=== PATIENT | female | born 1960 | race Caucasian/White ===

== ENCOUNTER 2017-11-02 22:33 | Emergency (ER) | payer MEDICARE ==
[~2017-11-02] VITALS: Ht 160 cm; Wt 61.2 kg
[2017-11-02 22:41] VITALS: BP_SYST 141
--- NOTE | 2017-11-02 22:44 | NUR ---
Robin ulrich in [facility] - 11/02/17 at 2333 by SDEDAFJ Patient to bed 02 to gildardo for evaluation. Side rails up.
--- NOTE | 2017-11-02 23:32 | NUR ---
Patient to ER bed 4 to gown for evaluation. Side rails up. Report given to SCOTT GA.
--- NOTE | 2017-11-02 23:35 | NUR ---
Patient to ER via triage with c/o cough and congestion since 10/05 at 0900. Patient is awake, alert and oriented, vital signs stable, respirations even and unlabored, skin warm and dry to touch. Awaitng evaluation by ER MD, will continue to observe and assess.
--- NOTE | 2017-11-02 23:38 | NUR ---
Dr Covarrubias at bedside to evaluate patient.
[2017-11-02] MEDS ORDERED: IPRATROPIUM/ALBUTEROL SULFATE 3 ML AMPUL.NEB INH ONE (23:45)
[2017-11-02] MEDS ORDERED: KETOROLAC TROMETHAMINE 60 MG/2 ML VIAL IM ONE (23:45)
--- NOTE | 2017-11-03 00:05 | NUR ---
RT at bedside for breathing treatment-patient resting quietly supine, in no acute distress. Respirations even and unlabored, no cough noted while patient is resting quietly in no acute distress.
[2017-11-03 00:27] LABS: EOSINOPHILS # (AUTO) 0.1 K/uL (0.0-0.4); EOSINOPHILS % (AUTO) 2.7 % (0.0-4.0); HEMATOCRIT 36.4 % (36-48); HEMOGLOBIN 12.5 g/dL (12.0-16.0); LYMPHOCYTES # (AUTO) 1.6 K/uL (1.0-5.5); LYMPHOCYTES % (AUTO) 43.1 % (20.5-51.5); MEAN CORPUSCULAR HEMOGLOBIN 31 pg (27-31); MEAN CORPUSCULAR HGB CONC 34 % (32-36); MEAN CORPUSCULAR VOLUME 90 fL (79.0-98.0); MONOCYTES # (AUTO) 0.3 K/uL (0.0-1.0); MONOCYTES % (AUTO) 8.8 % (1.7-9.3); NEUTROPHILS # (AUTO) 1.5 K/uL (1.8-7.7); PLATELET COUNT (AUTO) 57 K/uL (130-430); RED BLOOD CELL COUNT(AUTO) 4.06 MIL/uL (4.2-6.2); RED CELL DISTRIBUTION WIDTH 13.6 % (9.0-15.0); WHITE BLOOD COUNT (AUTO) 3.5 K/uL (4.8-10.8)
[2017-11-03 00:31] LABS: CALCIUM 8.2 mg/dL (8.4-11.0); CREATININE 0.71 mg/dL (0.55-1.30); POTASSIUM 3.8 mmol/L (3.5-5.1)
[2017-11-03 00:45] LABS: TOTAL BILIRUBIN 0.6 mg/dL (0.0-1.0)
--- NOTE | 2017-11-03 01:00 | NUR ---
Patient resting quietly in no acute distress, respirations even and unlabored, skin warm and dry to touch. Awaiting dispo.
[2017-11-03 01:17] LABS: NEUTROPHILS % (AUTO) 44.4 % (40.0-70.0)
[2017-11-03 01:30] VITALS: BP_SYST 135
--- NOTE | 2017-11-03 01:30 | NUR ---
Patient given written and verbal discharge instructions and verbalizes understanding. ER MD discussed with patient the results and treatment provided. Patient in stable condition. ID arm band removed. Rx of Prednisone, Albuterol, Azithromycin given. Patient educated on pain management and to follow up with PMD. Pain Scale 0. Opportunity for questions provided and answered. Medication side effect fact sheet provided. Patient left ER ambulating with slow, steady gait in no acute distress. No adverse reaction noted to medication. No questions related to aftercare.
== END 2017-11-03 01:30 | disposition home or self-care (01) ==
LOC: SED 22:33
DX: J45.909 Unspecified asthma, uncomplicated (principal); R03.0 Elevated blood-pressure reading, without diagnosis of hypertension
CPT/HCPCS: 36415; 71045; 80053; 85025; 85379; 86710; 94640; 96372; 99285; J1885; J7620

== ENCOUNTER 2018-07-03 15:22 | Emergency (ER) | payer BC, MEDICARE ==
[~2018-07-03] VITALS: Ht 160 cm; Wt 59.0 kg
[2018-07-03 15:22] VITALS: BP_SYST 142
[2018-07-03] MEDS ORDERED: KETOROLAC TROMETHAMINE 30 MG VIAL IVP ONE (17:00)
[2018-07-03] MEDS ORDERED: MORPHINE 2 MG/ML INJ. SYRINGE IVP ONE (17:00)
[2018-07-03] MEDS ORDERED: DIPHENHYDRAMINE INJ 50 MG/ML VIAL IVP ONE (17:00)
[2018-07-03 17:49] LABS: BILIRUBIN,URINE 1+ (NEGATIVE); BLOOD, URINE NEGATIVE (NEGATIVE); CLARITY/URINE SL HAZY (CLEAR); COLOR,URINE YELLOW (YELLOW); GLUCOSE,URINE NEGATIVE (NEGATIVE); KETONES,URINE TRACE (NEGATIVE); LEUKOCYTE ESTERASE ,URINE NEGATIVE (NEGATIVE); NITRITE, URINE NEGATIVE (NEGATIVE); PH,URINE 5.5 (5.0-8.0); PROTEIN URINE NEGATIVE (NEGATIVE)
[2018-07-03 17:50] LABS: HEMATOCRIT 39.2 % (36-48); HEMOGLOBIN 13.2 g/dL (12.0-16.0); MEAN CORPUSCULAR HEMOGLOBIN 31 pg (27-31); MEAN CORPUSCULAR HGB CONC 34 % (32-36); MEAN CORPUSCULAR VOLUME 91 fL (79.0-98.0); RED CELL DISTRIBUTION WIDTH 13.8 % (9.0-15.0); WHITE BLOOD COUNT (AUTO) 4.1 K/uL (4.8-10.8)
[2018-07-03 17:51] LABS: BASOPHILS % (AUTO) 0.6 % (0.0-2.0); EOSINOPHILS # (AUTO) 0.1 K/uL (0.0-0.4); EOSINOPHILS % (AUTO) 2.7 % (0.0-4.0); LYMPHOCYTES # (AUTO) 1.5 K/uL (1.0-5.5); LYMPHOCYTES % (AUTO) 37.1 % (20.5-51.5); MONOCYTES # (AUTO) 0.4 K/uL (0.0-1.0); MONOCYTES % (AUTO) 10.5 % (1.7-9.3); NEUTROPHILS % (AUTO) 49.1 % (40.0-70.0)
[2018-07-03 18:01] LABS: INR 1.4 (0.8-1.2); PLATELET COUNT (AUTO) 46 K/uL (130-430); PROTHROMBIN TIME 14.2 SECS (9.5-12.5)
[2018-07-03 18:03] LABS: ANION GAP 7 (5-15); CALCIUM 8.7 mg/dL (8.4-11.0); CHLORIDE 109 mmol/L (98-107); GLUCOSE 121 mg/dL (70-99); POTASSIUM 3.8 mmol/L (3.5-5.1); SODIUM SERUM 140 mmol/L (136-145); UREA NITROGEN, BLOOD 19 mg/dL (8-21)
[2018-07-03 18:08] LABS: GFR AFRICAN AMERICAN 133 mL/min (>90)
[2018-07-03] MEDS ORDERED: BENA40TA2 PO (18:08)
[2018-07-03 18:10] LABS: TOTAL BILIRUBIN 1.1 mg/dL (0.0-1.0)
[2018-07-03 18:11] LABS: ALANINE AMINOTRANSFERASE 151 U/L (12-78); ALBUMIN 2.8 g/dL (3.4-4.8); ALCOHOL, BLOOD < 3 mg/dL (<10); ASPARTATE AMINOTRANSFERASE 188 U/L (10-37); LIPASE 336 U/L (73-393)
[2018-07-03 18:12] LABS: BARBITURATE, URINE NEGATIVE (NEG <=200); BENZODIAZEPINE, URINE NEGATIVE (NEG <=150); CANNABINOID, URINE NEGATIVE (NEG <=50); COCAINE, URINE NEGATIVE (NEG <=150); METHAMPHETAMINES SCREEN,URINE POSITIVE (NEG <=500); OPIATE, URINE NEGATIVE (NEG <=100); PHENCYCLIDINE SCREEN,URINE NEGATIVE (NEG <=25); UR TRICYCLIC ANTIDEPRESSANTS NEGATIVE (NEG <=300); URINE AMPHETAMINE POSITIVE (NEG <=500); URINE METHADONE NEGATIVE (NEG <=200); URINE OXYCODONE SCREEN NEGATIVE (NEG <=100); URINE PROPOXYPHENE SCREEN NEGATIVE (NEG <=300)
[2018-07-03 18:24] LABS: RBC,URINE NONE SEEN /HPF (0-3); WBC,URINE 0-3 /HPF (0-3)
[2018-07-03 18:25] LABS: BACTERIA,URINE FEW /HPF (None Seen); MUCUS,URINE 1+ /LPF (None Seen)
[2018-07-03] MEDS ORDERED: ONDANSETRON HCL 4 MG/2 ML VIAL IVP ONE (18:30)
[2018-07-03] MEDS ORDERED: MAGNESIUM CITRATE 300 ML ORAL SOLUTION PO ONE (18:30)
[2018-07-03 18:50] VITALS: BP_SYST 126
== END 2018-07-03 18:50 | disposition home or self-care (01) ==
LOC: SED 15:22
DX: N20.0 Calculus of kidney (principal); I10 Essential (primary) hypertension; Z86.19 Personal history of other infectious and parasitic diseases
CPT/HCPCS: 36415; 74176; 71045; 80053; 80307; 81000; 81025; 82140; 83605; 83690; 85025; 85610; 87040; 96374; 96375; 99284; G0482; J1885; J2405; J1200

== ENCOUNTER 2018-12-05 12:21 | Emergency (ER) | payer BC ==
[~2018-12-05] VITALS: Ht 167.6 cm; Wt 59.0 kg
[~2018-12-05 12:21] MED LIST: BENA40TA8 PO
[2018-12-05 12:25] VITALS: BP_SYST 141
[2018-12-05] MEDS ORDERED: DIPH-TET-PERTUS Vaccine 0.5 ML VIAL (ADACEL) IM ONE (12:45)
[2018-12-05] MEDS ORDERED: LIDOCAINE 1% 10 MG/ML, 20 ML MDV INJ ONE (12:45)
[2018-12-05] MEDS ORDERED: BACITRACIN 1 GM OINT TP ONE (12:45)
[2018-12-05] MEDS ORDERED: IBUPROFEN 600 MG TABLET PO ONE (13:15)
[2018-12-05] MEDS ORDERED: oxyCODONE HCL 5 MG TABLET PO ONE (13:15)
[2018-12-05 13:37] LABS: EOSINOPHILS # (AUTO) 0.1 K/uL (0.0-0.4); EOSINOPHILS % (AUTO) 1.8 % (0.0-4.0); HEMOGLOBIN 12.7 g/dL (12.0-16.0); LYMPHOCYTES # (AUTO) 1.3 K/uL (1.0-5.5); MONOCYTES # (AUTO) 0.4 K/uL (0.0-1.0); MONOCYTES % (AUTO) 10.1 % (1.7-9.3); NEUTROPHILS # (AUTO) 1.9 K/uL (1.8-7.7); RED CELL DISTRIBUTION WIDTH 15.5 % (9.0-15.0); WHITE BLOOD COUNT (AUTO) 3.6 K/uL (4.8-10.8)
[2018-12-05 13:48] LABS: BASOPHILS % (AUTO) 0.6 % (0.0-2.0); CALCIUM 8.8 mg/dL (8.4-11.0); CREATININE 0.58 mg/dL (0.55-1.30); HEMATOCRIT 38.7 % (36-48); LYMPHOCYTES % (AUTO) 35.9 % (20.5-51.5); MEAN CORPUSCULAR HEMOGLOBIN 29 pg (27-31); MEAN CORPUSCULAR HGB CONC 33 % (32-36); MEAN CORPUSCULAR VOLUME 88 fL (79.0-98.0); NEUTROPHILS % (AUTO) 51.6 % (40.0-70.0); POTASSIUM 3.9 mmol/L (3.5-5.1); RED BLOOD CELL COUNT(AUTO) 4.42 MIL/uL (4.2-6.2)
[2018-12-05 13:51] LABS: INR 1.4 (0.8-1.2); PROTHROMBIN TIME 14.1 SECS (9.5-12.5)
[2018-12-05 13:52] LABS: PLATELET COUNT (AUTO) 46 K/uL (130-430)
[2018-12-05 13:53] LABS: TOTAL BILIRUBIN 1.6 mg/dL (0.0-1.0)
[2018-12-05] MEDS ORDERED: LIDOCAINE/EPI 2% 1:100000 20 ML VIAL INJ ONE (14:15)
[2018-12-05 14:20] VITALS: BP_SYST 141
== END 2018-12-05 14:20 | disposition home or self-care (01) ==
LOC: SED 12:21
DX: S21.131A Puncture wound without foreign body of right front wall of thorax without penetration into thoracic cavity, initial encounter (principal); K74.60 Unspecified cirrhosis of liver; D69.6 Thrombocytopenia, unspecified; I10 Essential (primary) hypertension; Z86.19 Personal history of other infectious and parasitic diseases; W01.0XXA Fall on same level from slipping, tripping and stumbling without subsequent striking against object, initial encounter; Y93.89 Activity, other specified; Y92.89 Other specified places as the place of occurrence of the external cause; Y99.8 Other external cause status
CPT/HCPCS: 36415; 71045; 80053; 85025; 85610-TC; 85730-TC; 90715; 99284

== ENCOUNTER 2019-06-14 16:39 | Inpatient (IN) | payer BC ==
[~2019-06-14] VITALS: Ht 160 cm; Wt 61.2 kg
[~2019-06-14 16:39] MED LIST changes: +METR500T PO
[2019-06-14 17:04] VITALS: BP_SYST 159
[2019-06-14] MEDS ORDERED: NACL 0.9% 1,000 ML IV ONE (17:34)
[2019-06-14] MEDS ORDERED: MORPHINE 4 MG/ML INJ. SYRINGE IVP ONE (17:45)
[2019-06-14] MEDS ORDERED: PANTOPRAZOLE SODIUM 40 MG/VIAL (PROTONIX) IVP ONE (17:45)
[2019-06-14] MEDS ORDERED: ONDANSETRON HCL 4 MG/2 ML VIAL IVP ONE (17:45)
[2019-06-14 17:59] LABS: BASOPHILS % (AUTO) 0.6 % (0.0-2.0); EOSINOPHILS # (AUTO) 0.1 K/uL (0.0-0.4); EOSINOPHILS % (AUTO) 2.5 % (0.0-4.0); HEMATOCRIT 38.3 % (36-48); LYMPHOCYTES # (AUTO) 1.3 K/uL (1.0-5.5); LYMPHOCYTES % (AUTO) 36.8 % (20.5-51.5); MEAN CORPUSCULAR HEMOGLOBIN 30 pg (27-31); MEAN CORPUSCULAR HGB CONC 34 % (32-36); MEAN CORPUSCULAR VOLUME 89 fL (79.0-98.0); MONOCYTES # (AUTO) 0.3 K/uL (0.0-1.0); MONOCYTES % (AUTO) 7.8 % (1.7-9.3); NEUTROPHILS # (AUTO) 1.8 K/uL (1.8-7.7); NEUTROPHILS % (AUTO) 52.3 % (40.0-70.0); RED CELL DISTRIBUTION WIDTH 14.2 % (9.0-15.0); WHITE BLOOD COUNT (AUTO) 3.5 K/uL (4.8-10.8)
[2019-06-14 18:15] LABS: ANION GAP 5 (5-15); CALCIUM 7.9 mg/dL (8.4-11.0); CHLORIDE 104 mmol/L (98-107); CREATININE 0.56 mg/dL (0.55-1.30); GLUCOSE 92 mg/dL (70-99); POTASSIUM 3.8 mmol/L (3.5-5.1); SODIUM SERUM 136 mmol/L (136-145); UREA NITROGEN, BLOOD 13 mg/dL (8-21)
[2019-06-14 18:17] LABS: PLATELET COUNT (AUTO) 37 K/uL (130-430)
[2019-06-14 18:19] LABS: GFR AFRICAN AMERICAN 144 mL/min (>90)
[2019-06-14 18:21] LABS: ALANINE AMINOTRANSFERASE 52 U/L (12-78); ALBUMIN 3.5 g/dL (3.4-4.8); AMYLASE 77 U/L (0-100); ASPARTATE AMINOTRANSFERASE 76 U/L (10-37); LIPASE 274 U/L (73-393); TOTAL BILIRUBIN 1.5 mg/dL (0.0-1.0)
[2019-06-14 18:25] LABS: ALCOHOL, BLOOD < 3 mg/dL (<10)
[2019-06-14 18:36] LABS: BILIRUBIN,URINE NEGATIVE (NEGATIVE); BLOOD, URINE NEGATIVE (NEGATIVE); CLARITY/URINE CLEAR (CLEAR); COLOR,URINE YELLOW (YELLOW); GLUCOSE,URINE NEGATIVE (NEGATIVE); KETONES,URINE NEGATIVE (NEGATIVE); LEUKOCYTE ESTERASE ,URINE NEGATIVE (NEGATIVE); NITRITE, URINE NEGATIVE (NEGATIVE); PROTEIN URINE NEGATIVE (NEGATIVE)
--- NOTE | 2019-06-14 18:39 | NUR ---
PATIENT PRESENTS TO THE ER WITH HX OF SEVERE ABDOMINAL PAIN AND DISTENTION WITH DIARRHEA/CONSTIPATION OVER THE PAST THREE DAYS; ADDITIONALLY, PATIENT STATES HEMATEMESIS, DIZZINESS AND WEAKNESS; NO TRAUMA, NO OTHER REMARKABLE S/S
[2019-06-14 18:40] LABS: INR 1.4 (0.8-1.2); PROTHROMBIN TIME 13.8 SECS (9.5-12.5)
--- NOTE | 2019-06-14 18:40 | NUR ---
PATIENT TO ER #1 AT [id number]
--- NOTE | 2019-06-14 18:41 | NUR ---
ERMD EVALUATION AT 1740
--- NOTE | 2019-06-14 18:46 | NUR ---
PATIENT IS ON FILM SPLICER, SAO2 AND NASAL OXYGEN AT 2LM; IV PLACED WITHOUT INCIDENT #20 LAC
[2019-06-14 18:58] LABS: BARBITURATE, URINE NEGATIVE (NEG <=200); METHAMPHETAMINES SCREEN,URINE POSITIVE (NEG <=500); URINE AMPHETAMINE NEGATIVE (NEG <=500)
[2019-06-14 18:59] LABS: BENZODIAZEPINE, URINE NEGATIVE (NEG <=150); CANNABINOID, URINE NEGATIVE (NEG <=50); COCAINE, URINE NEGATIVE (NEG <=150); OPIATE, URINE NEGATIVE (NEG <=100); PHENCYCLIDINE SCREEN,URINE NEGATIVE (NEG <=25); UR TRICYCLIC ANTIDEPRESSANTS NEGATIVE (NEG <=300); URINE METHADONE NEGATIVE (NEG <=200); URINE OXYCODONE SCREEN NEGATIVE (NEG <=100); URINE PROPOXYPHENE SCREEN NEGATIVE (NEG <=300)
--- NOTE | 2019-06-14 19:19 | NUR ---
Patient will be admitted to care of DR. AGUILAR. Admitted to TELE unit. PT IS AN ER HOLD TILL [facility] BED OPENS UP. Belongings list completed. Complete and up to date summary report printed. SBAR report to be given at bedside with opportunity for questions.
[2019-06-14] MEDS ORDERED: PANTOPRAZOLE SODIUM 80 MG in NS 100 ML IV ONE (19:30)
[2019-06-14] MEDS: NACL 0.9% 1,000 ML IV SCH (19:30)
[2019-06-14] MEDS ORDERED: PANTOPRAZOLE SODIUM 40 MG/VIAL (PROTONIX) ONE (19:40)
--- NOTE | 2019-06-14 19:40 | NUR ---
CONSULT CALLED FOR DR. ROMANO REGARDING GI BLEED. SPOKE WITH KRISTY AT ANSWERING SERVICE.
--- NOTE | 2019-06-14 20:08 | NUR ---
Pt transferred from ER bed to hospital bed for comfort. Will cont. to monitor pt.
[2019-06-14] MEDS ORDERED: ONDANSETRON HCL 4 MG/2 ML VIAL IVP PRN (21:00)
[2019-06-14] MEDS ORDERED: LORazepam 2 MG/ML VIAL IVP PRN (21:00)
[2019-06-14] MEDS ORDERED: DIPHENHYDRAMINE INJ 50 MG/ML VIAL IVP PRN (21:00)
--- NOTE | 2019-06-14 21:00 | NUR ---
Pt states that she has been itchy on her R arm, back and bilateral legs. Reports that she randomly gets hives and treats it with cortizone cream. Called Dr. Champagne and updated about pts condition. Per Dr. Champagne benadryl 50 IV q6 PRN for allergy, ativan 1mg IV Q4 for agitation and zofran 4mg IV q4 PRN n/v
--- NOTE | 2019-06-14 21:17 | NUR ---
Pt assited on to bedside commode. Tolerated well. Will cont. to monitor.
[2019-06-14] MEDS ORDERED: cloNIDine HCL 0.1 MG TABLET PO PRN (22:15)
[2019-06-14] MEDS ORDERED: MAG-AL HYDROX/SIMETH 30 ML UDC PO PRN (22:15)
--- NOTE | 2019-06-14 22:23 | NUR ---
Dr. Champagne at bedside.
[2019-06-14 22:44] LABS: BASOPHILS % (AUTO) 0.8 % (0.0-2.0); EOSINOPHILS # (AUTO) 0.1 K/uL (0.0-0.4); EOSINOPHILS % (AUTO) 3.1 % (0.0-4.0); HEMOGLOBIN 11.9 g/dL (12.0-16.0); LYMPHOCYTES # (AUTO) 1.4 K/uL (1.0-5.5); LYMPHOCYTES % (AUTO) 44.5 % (20.5-51.5); MEAN CORPUSCULAR HEMOGLOBIN 30 pg (27-31); MEAN CORPUSCULAR HGB CONC 34 % (32-36); MEAN CORPUSCULAR VOLUME 90 fL (79.0-98.0); MONOCYTES # (AUTO) 0.2 K/uL (0.0-1.0); MONOCYTES % (AUTO) 7.1 % (1.7-9.3); NEUTROPHILS # (AUTO) 1.4 K/uL (1.8-7.7); NEUTROPHILS % (AUTO) 44.5 % (40.0-70.0); RED BLOOD CELL COUNT(AUTO) 3.91 MIL/uL (4.2-6.2); RED CELL DISTRIBUTION WIDTH 14.7 % (9.0-15.0); WHITE BLOOD COUNT (AUTO) 3.2 K/uL (4.8-10.8)
[2019-06-14 22:50] LABS: PLATELET COUNT (AUTO) 33 K/uL (130-430)
[2019-06-14] MEDS ORDERED: MAG-AL HYDROX/SIMETH 30 ML UDC PO ONE (23:00)
[2019-06-14] MEDS ORDERED: LISINOPRIL 20 MG TABLET PO SCH (23:00)
[2019-06-14] MEDS ORDERED: THIAMINE HCL 100 MG in NS 50 ML IV ONE (23:00)
--- NOTE | 2019-06-14 23:15 | NUR ---
Called pharmacy to as if it is ok to give vitamin K PO. Marino states, "Vitamin K is currently back ordered, it's okay to give PO with some juice."
[2019-06-14] MEDS: PHYTONADIONE 10 MG/ML AMP PO SCH (23:30)
[2019-06-14] MEDS ORDERED: THIAMINE HCL 100 MG/ML VIAL ONE ×2 (23:31)
--- NOTE | 2019-06-14 23:35 | NUR ---
Pts BP is 128/90, holding BP medication.
--- NOTE | 2019-06-15 01:00 | NUR ---
Pt resting comfortably in bed, no signs of acute distress. Will cont. to monitor.
--- NOTE | 2019-06-15 01:30 | NUR ---
Pts BP is 121/67, holding BP medication.
--- NOTE | 2019-06-15 02:00 | NUR ---
Pt resting comfortably in bed, no signs of acute distress. Will cont. to monitor.
[2019-06-15] MEDS ORDERED: AMLO5TAB4 PO (03:13)
[2019-06-15] MEDS ORDERED: ALPR0.5T PO (03:18)
--- NOTE | 2019-06-15 03:18 | NUR ---
Medication reconciliation completed with information provided by patient. Any prior medication reconciliation on file was reviewed and corrected.
--- NOTE | 2019-06-15 03:30 | NUR ---
Pts BP is 120/62, holding BP medication.
[2019-06-15] MEDS ORDERED: PHYTONADIONE 10 MG/ML AMP ONE (05:50)
[2019-06-15] MEDS: NACL 0.9% 1,000 ML IV SCH ×3 (05:55→21:27)
[2019-06-15] MEDS: PHYTONADIONE 10 MG/ML AMP PO SCH (06:00)
--- NOTE | 2019-06-15 06:00 | NUR ---
Pt ambulated with assistance to bathroom, no signs of acute distress. Will cont. to monitor.
--- NOTE | 2019-06-15 06:20 | NUR ---
Pt coughed up red-tinged sputum.
--- NOTE | 2019-06-15 06:26 | NUR ---
Provided pt with jello and juice. No signs of acute distress. Will cont .to monitor.
--- NOTE | 2019-06-15 06:30 | NUR ---
Pt stated IV on LAC was hurting. Started new IV on R forearm.
--- NOTE | 2019-06-15 06:36 | NUR ---
Amy Ruiz's number [phone]
--- NOTE | 2019-06-15 07:15 | NUR ---
REPORT FROM BISHOP CHAVEZ
[2019-06-15 08:40] LABS: BASOPHILS % (AUTO) 0.7 % (0.0-2.0); EOSINOPHILS # (AUTO) 0.1 K/uL (0.0-0.4); EOSINOPHILS % (AUTO) 3.5 % (0.0-4.0); HEMATOCRIT 33.6 % (36-48); HEMOGLOBIN 11.2 g/dL (12.0-16.0); LYMPHOCYTES # (AUTO) 1.4 K/uL (1.0-5.5); LYMPHOCYTES % (AUTO) 51.2 % (20.5-51.5); MEAN CORPUSCULAR HEMOGLOBIN 30 pg (27-31); MEAN CORPUSCULAR HGB CONC 34 % (32-36); MEAN CORPUSCULAR VOLUME 90 fL (79.0-98.0); MONOCYTES # (AUTO) 0.2 K/uL (0.0-1.0); MONOCYTES % (AUTO) 9.1 % (1.7-9.3); NEUTROPHILS % (AUTO) 35.5 % (40.0-70.0); RED BLOOD CELL COUNT(AUTO) 3.72 MIL/uL (4.2-6.2); RED CELL DISTRIBUTION WIDTH 14.4 % (9.0-15.0); WHITE BLOOD COUNT (AUTO) 2.7 K/uL (4.8-10.8)
[2019-06-15 08:58] LABS: NEUTROPHILS # (AUTO) 0.9 K/uL (1.8-7.7)
[2019-06-15 08:59] LABS: INR 1.5 (0.8-1.2); PLATELET COUNT (AUTO) 33 K/uL (130-430)
[2019-06-15 09:07] LABS: ALBUMIN 2.6 g/dL (3.4-4.8); CALCIUM 7.5 mg/dL (8.4-11.0); CREATININE 0.66 mg/dL (0.55-1.30); POTASSIUM 3.6 mmol/L (3.5-5.1); TOTAL BILIRUBIN 1.5 mg/dL (0.0-1.0)
--- NOTE | 2019-06-15 09:35 | NUR ---
PT TO CT
--- NOTE | 2019-06-15 09:50 | NUR ---
Patient will be admitted to care of DR AGUILAR. Admitted to TELE unit. Will go to room 123. Belongings list completed. Complete and up to date summary report printed. SBAR report to be given at bedside with opportunity for questions. Transfer to TELE via ACLS protocol. Licensed nurse present. IV present no signs or symptoms of infiltration.
--- NOTE | 2019-06-15 10:00 | NUR ---
ADMISSION NOTE Received patient from ER via greyson, received report from JOSI CHAVEZ. Patient admitted with diagnosis of GI BLEED. Patient oriented to hospital routine, call light, toileting and safety-patient verbalized understanding.
[2019-06-15 10:17] VITALS: BP_SYST 139
[2019-06-15] MEDS: LISINOPRIL 20 MG TABLET PO SCH (10:19)
[2019-06-15] MEDS: THIAMINE HCL 100 MG TABLET PO SCH (10:19)
[2019-06-15] MEDS: FAMOTIDINE PF 20 MG/2 ML VIAL IVP SCH ×2 (10:19→21:17)
[2019-06-15] MEDS: FOLIC ACID 1 MG TABLET PO SCH (10:20)
--- NOTE | 2019-06-15 10:24 | NUR ---
GI consult called: for Dr. Price (Dr. Muriel Javier regional sales representative), regarding GI bleed, ordered by Dr. Champagne, spoke with Mariola.
[2019-06-15] MEDS: ACETAMINOPHEN 325 MG TABLET PO PRN ×2 (10:28→21:18)
--- NOTE | 2019-06-15 10:30 | NUR ---
opening note patient is resting in bed, alert and oriented, educated management consultant light system and plan of care, patient verbalized understanding, educated on medication uses and side effects, patient verbalized understanding, no signs of distress at this time, IV site dressing in tact, IVF running and patient tolerating well, no other needs addressed at this time, patient walks steady to the bathroom, fall/safety precautions in place.
--- NOTE | 2019-06-15 12:13 | NUR ---
rounds patient is resting in bed, eyes closed breathing easy and nonlabored, no signs of distress at this time, no needs addressed at this time, fall/safety precautions in place.
[2019-06-15 12:36] VITALS: BP_SYST 108
[2019-06-15] MEDS: MAG-AL HYDROX/SIMETH 30 ML UDC PO SCH ×3 (13:07→21:17)
--- NOTE | 2019-06-15 14:30 | NUR ---
Dr Javier came to see patient for consults, discussed plan of care, possible EGD for tomorrow.
--- NOTE | 2019-06-15 16:53 | NUR ---
scheduled medication patient is resting in bed, educated on medication use and side effects, patient verbalized understanding, no signs of distress at this time, no needs addressed at this time, fall/safety precautions in place, IVF running and patient tolerating well.
[2019-06-15 17:23] VITALS: BP_SYST 115
--- NOTE | 2019-06-15 18:40 | NUR ---
closing note patient is resting in bed, family at the bedside, no signs of distress at this time, IV site dressing in tact, IVF running and patient tolerating well, no other needs addressed at this time, patient walks steady to the bathroom, bed in lowest position, two side rails up, call light within reach, bed alarm on, call/safety precautions in place, will endorse report to noc shift nurse to continue with care, patient will have EGD tomorrow AM, consent was signed, patient to be NPO after midnight, patient is aware of this.
--- NOTE | 2019-06-15 19:15 | NUR ---
initial notes: pt is alert, awake, oriented x 3. no pain. no distress. stable. pt has ongoing ivf infusing well. pt has pt is ambulatory with steady gait. daughter at bed side . on clear liquid. explained plan of care. pt verbalized understanding. call light in reach, side rails up. low bed position. will monitor.
[2019-06-15 20:48] VITALS: BP_SYST 120
[2019-06-15] MEDS: TEMAZEPAM 15 MG CAPSULE PO SCH (21:00)
--- NOTE | 2019-06-15 22:00 | NUR ---
resting on her side, comfortable. ivf infusing well. safety on. call light in reach. will monitor.
--- NOTE | 2019-06-15 23:59 | NUR ---
sleeping, no pain. stable. pt refused restoril earlier. safety on. call light in reach. will monitor.
[2019-06-16 00:37] VITALS: BP_SYST 128
--- NOTE | 2019-06-16 02:07 | NUR ---
sleeping on her side comfortable, no pain, no vomiting, no sob. ivf infusing well. npo for egd. cony monitor.
--- NOTE | 2019-06-16 04:00 | NUR ---
pt wakes up, assisted to bathroom, back to bed,s teady gait. no pain. no sob. needs attended. will monitor.
--- NOTE | 2019-06-16 06:00 | NUR ---
sleeping, comfortable. no distress. ivf infusing well. stable. safety on. will monitor.
--- NOTE | 2019-06-16 07:20 | NUR ---
closing: pt is sleeping, wakes up, during report, ivf infusing well. npo for egd, needs attended the whole shift. bedside report given to am rn.
--- NOTE | 2019-06-16 07:25 | NUR ---
OPENING NOTE PT AWAKE, ALERT AND ORIENTED. NO ACUTE DISTRESS NOTED. IV INTACT AND PATENT, NO SIGNS OF INFILTRATION. FLUIDS INFUSING ORDERED PER MD. TOLERATING WELL. BED IN LOWEST AND LOCKED POSITION. ALL NEEDS MET. FALL AND ASPIRATION PRECAUTIONS IN PLACE. CONTINUE TO MONITOR.
[2019-06-16 08:00] VITALS: BP_SYST 113
--- NOTE | 2019-06-16 08:30 | NUR ---
ENDORSED CARE TO SCOTT SIMONS.
[2019-06-16] MEDS ORDERED: MIDAZOLAM HCL 5 MG/5 ML VIAL ONE (08:51)
[2019-06-16] MEDS ORDERED: SIMETHICONE 40 MG/0.6 ML ML ONE (08:52)
[2019-06-16] MEDS ORDERED: DIPHENHYDRAMINE INJ 50 MG/ML VIAL ONE (08:52)
[2019-06-16] MEDS: MEPERIDINE HCL/PF 100 MG/ML AMP ONE ×2 (08:55→08:58)
[2019-06-16] MEDS: MIDAZOLAM HCL 5 MG/5 ML VIAL ONE ×2 (08:55→08:58)
[2019-06-16] MEDS: MAG-AL HYDROX/SIMETH 30 ML UDC PO SCH ×5 (09:00→23:12)
[2019-06-16 09:59] VITALS: BP_SYST 134
--- NOTE | 2019-06-16 10:00 | NUR ---
S/P EGD: Received from GI s/p EGD. Patient is awake but drowsy. Kept comfortable in bed. Safety precautions in place. Called dietary for soft diet tray.
[2019-06-16] MEDS: NACL 0.9% 1,000 ML IV SCH ×2 (10:08→21:30)
[2019-06-16] MEDS: THIAMINE HCL 100 MG TABLET PO SCH (10:08)
[2019-06-16] MEDS: FAMOTIDINE PF 20 MG/2 ML VIAL IVP SCH ×2 (10:08→23:05)
[2019-06-16] MEDS: FOLIC ACID 1 MG TABLET PO SCH (10:08)
[2019-06-16] MEDS: LISINOPRIL 20 MG TABLET PO SCH (10:09)
--- NOTE | 2019-06-16 12:51 | NUR ---
Dietitian Recommendations *Recommend GI Soft 2gm Na diet. *Encourage pt to increase PO intake. *May add ONS if PO intake does not improve by next RD visit. Please see Nutritional Assessment for details. SHELTER, RD
--- NOTE | 2019-06-16 13:28 | NUR ---
CONSULT HEMATOLOGY LOW PLATELETS DR CARTER [phone] DR RUBIN CASING MACHINE OPERATOR S/W DEVIN PAMELLA
--- NOTE | 2019-06-16 13:30 | NUR ---
Rounds: Patient sitting in bed. Denies chest pain. Family at bedside. Addendum: 06/16/19 at 1517 by Savannah Dominguez RN above documentation is intended for another patient.
[2019-06-16 15:00] VITALS: BP_SYST 131
--- NOTE | 2019-06-16 15:12 | NUR ---
Rounds: Ambulated to the bathroom with steady gait. Denies pain at this time.
[2019-06-16 15:59] LABS: RETICULOCYTE COUNT 1.4 % (0.5-1.5)
[2019-06-16 16:30] LABS: LACTATE DEHYDROGENASE 192 U/L (81-234); THYROID STIMULATING HORMONE 2.27 uIu/mL (0.36-3.74)
[2019-06-16 16:43] LABS: C-REACTIVE PROTEIN QUANT < 0.2 mg/dL (0-0.5)
[2019-06-16 16:56] LABS: TOTAL IRON BIND. CAPACITY 389 ug/dL (250-450)
--- NOTE | 2019-06-16 18:19 | NUR ---
End of shift: Needs attended. No change in assessment.
--- NOTE | 2019-06-16 21:00 | NUR ---
Right AC peripheral IV removed due to leaking around site. Pt complained of discomfort at site and stated "something just doesn't feel right". New 22 gauge peripheral IV placed in left forearm. Flushes well. Pt has no complaints. Tolerated procedure well.
[2019-06-16] MEDS: TEMAZEPAM 15 MG CAPSULE PO SCH (23:16)
[2019-06-17 06:39] LABS: ALBUMIN 2.6 g/dL (3.4-4.8); BASOPHILS % (AUTO) 0.7 % (0.0-2.0); CALCIUM 7.9 mg/dL (8.4-11.0); CREATININE 0.52 mg/dL (0.55-1.30); EOSINOPHILS # (AUTO) 0.1 K/uL (0.0-0.4); EOSINOPHILS % (AUTO) 5.3 % (0.0-4.0); HEMOGLOBIN 11.1 g/dL (12.0-16.0); LYMPHOCYTES % (AUTO) 41.5 % (20.5-51.5); MEAN CORPUSCULAR HEMOGLOBIN 30 pg (27-31); MEAN CORPUSCULAR HGB CONC 34 % (32-36); MEAN CORPUSCULAR VOLUME 90 fL (79.0-98.0); MONOCYTES # (AUTO) 0.3 K/uL (0.0-1.0); MONOCYTES % (AUTO) 10.3 % (1.7-9.3); NEUTROPHILS # (AUTO) 1.1 K/uL (1.8-7.7); NEUTROPHILS % (AUTO) 42.2 % (40.0-70.0); POTASSIUM 3.6 mmol/L (3.5-5.1); RED BLOOD CELL COUNT(AUTO) 3.65 MIL/uL (4.2-6.2); TOTAL BILIRUBIN 1.1 mg/dL (0.0-1.0); WHITE BLOOD COUNT (AUTO) 2.5 K/uL (4.8-10.8)
[2019-06-17 07:28] LABS: PLATELET COUNT (AUTO) 33 K/uL (130-430)
[2019-06-17 07:40] VITALS: BP_SYST 119
--- NOTE | 2019-06-17 07:53 | NUR ---
AM rounds: Patient is oriented x4. Denies any pain, nor diarrhea. Normal saline at 100 cc/hr infusing on the left wrist gauge 20. Call light within reach.
[2019-06-17 08:06] LABS: FOLATE (FOLIC ACID) 16.1 ng/mL (>3.0)
[2019-06-17 08:22] VITALS: BP_SYST 134
[2019-06-17] MEDS: MAG-AL HYDROX/SIMETH 30 ML UDC PO SCH ×2 (09:00→13:00)
[2019-06-17] MEDS: THIAMINE HCL 100 MG TABLET PO SCH (09:25)
[2019-06-17] MEDS: FAMOTIDINE PF 20 MG/2 ML VIAL IVP SCH (09:26)
[2019-06-17] MEDS: FOLIC ACID 1 MG TABLET PO SCH (09:26)
[2019-06-17] MEDS: LISINOPRIL 20 MG TABLET PO SCH (09:27)
[2019-06-17] MEDS: NACL 0.9% 1,000 ML IV SCH (09:36)
[2019-06-17 12:08] VITALS: BP_SYST 137
--- NOTE | 2019-06-17 12:30 | NUR ---
Rounds: denies any pain, no signs of bleeding.
[2019-06-17] MEDS ORDERED: FLU VACC QS2019-20 36MOS UP/PF 60 MCG/0.5 ML SYRINGE I.M. PRN (12:45)
[2019-06-17] MEDS ORDERED: Thiamine Hcl PO (12:54)
[2019-06-17] MEDS ORDERED: FOLI-43 PO (12:54)
[2019-06-17] MEDS ORDERED: ANT30 PO (12:54)
[2019-06-17] MEDS ORDERED: FAMO-132 PO (12:54)
[2019-06-17 13:10] VITALS: BP_SYST 97
--- NOTE | 2019-06-17 14:30 | NUR ---
HEMATOLOGY clearance for DC: Okayed by Dr. Dunham to be discharged home. Needs to follow up with hematology outpatient. Patient and Dr. Ihsan alegria.
[2019-06-17 16:04] VITALS: BP_SYST 135
--- NOTE | 2019-06-17 19:00 | NUR ---
D/C Patient Patient given medication reconciliation form and D/C instructions. Exit Care provided. Patient verbalized understanding. MD discussed with patient the results and treatment provided. Ambulatory with steady gait for discharge to home. Patient in stable condition, ID band removed. IV catheter removed, intact and dressing applied, no active bleeding. Rx of Pepcid, Folic Acid, Thiamine, Mylanta given. Patient educated on pain management, follow up with a best second jobs. Exit care on gastritis, Esophageal varices give. All belongings sent with patient.
== END 2019-06-17 18:57 | disposition home or self-care (01) | DRG 241 ==
LOC: SED 16:39 → STU 21:09 → SMU 06-15 09:48 → STU 06-15 10:16 → SMU 06-16 16:57
PROVIDERS: ADMIT Internal Medicine; ATTEND Internal Medicine
PROC: 0DB78ZX Excision of Stomach, Pylorus, Via Natural or Artificial Opening Endoscopic, Diagnostic (ICD-10-PCS; principal; 2019-06-16 09:00)
DX: K29.21 Alcoholic gastritis with bleeding (principal); D61.818 Other pancytopenia; D69.59 Other secondary thrombocytopenia; K56.7 Ileus, unspecified; R16.2 Hepatomegaly with splenomegaly, not elsewhere classified; D62 Acute posthemorrhagic anemia; K25.0 Acute gastric ulcer with hemorrhage; K74.60 Unspecified cirrhosis of liver; R59.0 Localized enlarged lymph nodes; B19.20 Unspecified viral hepatitis C without hepatic coma; I86.4 Gastric varices; F17.210 Nicotine dependence, cigarettes, uncomplicated; F10.20 Alcohol dependence, uncomplicated; I10 Essential (primary) hypertension; F15.10 Other stimulant abuse, uncomplicated; T47.1X5A Adverse effect of other antacids and anti-gastric-secretion drugs, initial encounter; Y92.238 Other place in hospital as the place of occurrence of the external cause; L27.1 Localized skin eruption due to drugs and medicaments taken internally; Z91.018 Allergy to other foods; Z79.899 Other long term (current) drug therapy
CPT/HCPCS: 36415; 43239; 70450-TC; 71045; 80053; 80307; 81003; 82140-TC; 82150-TC; 82550-TC; 82607; 82746; 83010; 83540-TC; 83550-TC; 83605; 83615-TC; 83690-TC; 83735-TC; 83880; 84443-TC; 84484; 85025; 85044-TC; 85384-TC; 85610-TC; 85651-TC; 85730-TC; 86140; 86886; 86900; 86901; 87040-TC; 87081; 88305; 88312; 88313; 96365; 96375; 96376; 99285; C9113; G0378; G0481; G0482; J1200; J2175; J2250; J2270; J2405; J3411; J3430; J3490; J7030

== ENCOUNTER 2019-09-07 13:18 | Inpatient (IN) | payer BC ==
[~2019-09-07] VITALS: Ht 160 cm; Wt 64.0 kg
[~2019-09-07 13:18] MED LIST changes: +ALPR0.5T PO; +AMLO5TAB4 PO; +ANT30 PO; +FAMO-132 PO; +FOLI-43 PO; -METR500T PO; +Thiamine Hcl PO
[2019-09-07 13:19] VITALS: BP_SYST 146
[2019-09-07] MEDS ORDERED: NACL 0.9% 1,000 ML IV ONE (13:22)
[2019-09-07] MEDS ORDERED: LORazepam 2 MG/ML VIAL IVP ONE (13:30)
[2019-09-07 13:47] LABS: BILIRUBIN,URINE 1+ (NEGATIVE); BLOOD, URINE NEGATIVE (NEGATIVE); CLARITY/URINE CLEAR (CLEAR); COLOR,URINE YELLOW (YELLOW); GLUCOSE,URINE TRACE (NEGATIVE); KETONES,URINE NEGATIVE (NEGATIVE); LEUKOCYTE ESTERASE ,URINE NEGATIVE (NEGATIVE); NITRITE, URINE NEGATIVE (NEGATIVE); PH,URINE 5.5 (5.0-8.0); PROTEIN URINE NEGATIVE (NEGATIVE)
[2019-09-07 14:03] LABS: EOSINOPHILS # (AUTO) 0.1 K/uL (0.0-0.4); LYMPHOCYTES # (AUTO) 1.2 K/uL (1.0-5.5); MONOCYTES # (AUTO) 0.4 K/uL (0.0-1.0)
[2019-09-07 14:10] LABS: BARBITURATE, URINE NEGATIVE (NEG <=200); BENZODIAZEPINE, URINE NEGATIVE (NEG <=150); CANNABINOID, URINE NEGATIVE (NEG <=50); COCAINE, URINE NEGATIVE (NEG <=150); METHAMPHETAMINES SCREEN,URINE POSITIVE (NEG <=500); OPIATE, URINE NEGATIVE (NEG <=100); PHENCYCLIDINE SCREEN,URINE NEGATIVE (NEG <=25); UR TRICYCLIC ANTIDEPRESSANTS NEGATIVE (NEG <=300); URINE AMPHETAMINE NEGATIVE (NEG <=500); URINE METHADONE NEGATIVE (NEG <=200); URINE OXYCODONE SCREEN NEGATIVE (NEG <=100); URINE PROPOXYPHENE SCREEN NEGATIVE (NEG <=300)
[2019-09-07 14:11] LABS: CALCIUM 8.6 mg/dL (8.4-11.0); CREATININE 0.65 mg/dL (0.55-1.30); POTASSIUM 3.9 mmol/L (3.5-5.1)
[2019-09-07 14:15] LABS: INR 1.4 (0.8-1.2); PROTHROMBIN TIME 13.7 SECS (9.5-12.5)
[2019-09-07 14:17] LABS: ALBUMIN 3.3 g/dL (3.4-4.8); TOTAL BILIRUBIN 1.8 mg/dL (0.0-1.0)
[2019-09-07 14:18] LABS: BASOPHILS % (AUTO) 0.8 % (0.0-2.0); EOSINOPHILS % (AUTO) 1.7 % (0.0-4.0); HEMATOCRIT 42.8 % (36-48); HEMOGLOBIN 14.3 g/dL (12.0-16.0); LYMPHOCYTES % (AUTO) 30.4 % (20.5-51.5); MEAN CORPUSCULAR HEMOGLOBIN 30 pg (27-31); MEAN CORPUSCULAR HGB CONC 33 % (32-36); MEAN CORPUSCULAR VOLUME 90 fL (79.0-98.0); MONOCYTES % (AUTO) 8.8 % (1.7-9.3); NEUTROPHILS # (AUTO) 2.3 K/uL (1.8-7.7); RED BLOOD CELL COUNT(AUTO) 4.74 MIL/uL (4.2-6.2); RED CELL DISTRIBUTION WIDTH 15.9 % (9.0-15.0)
[2019-09-07 14:20] LABS: PLATELET COUNT (AUTO) 42 K/uL (130-430)
[2019-09-07 14:23] LABS: NEUTROPHILS % (AUTO) 58.3 % (40.0-70.0)
[2019-09-07] MEDS ORDERED: ALPRAZolam 0.25 MG TABLET PO ONE (16:00)
[2019-09-07] MEDS ORDERED: cloNIDine HCL 0.2 MG TABLET PO PRN (16:00)
[2019-09-07] MEDS ORDERED: FOLIC ACID 1 MG, THIAMINE HCL 100 MG, MAGNESIUM SULFATE 1 GM, MVI 10 ML in NACL 0.9% 1,... IV ONE (16:00)
[2019-09-07] MEDS ORDERED: LORazepam 2 MG/ML VIAL IVP PRN (16:15)
[2019-09-07 16:18] VITALS: BP_SYST 123
[2019-09-07] MEDS ORDERED: FAMOTIDINE PF 20 MG/2 ML VIAL IVP ONE (16:30)
[2019-09-07 16:46] VITALS: BP_SYST 123
[2019-09-07] MEDS: ALPRAZolam 0.25 MG TABLET PO SCH ×2 (17:00→21:00)
[2019-09-07] MEDS: FOLIC ACID 1 MG, MVI 10 ML in NACL 0.9% 1,000 ML IV SCH (18:01)
[2019-09-07] MEDS: THIAMINE HCL 100 MG, MAGNESIUM SULFATE 1 GM in NS 100 ML IV SCH (18:02)
[2019-09-07 20:00] VITALS: BP_SYST 119
[2019-09-07] MEDS ORDERED: ALPRAZolam 0.25 MG TABLET PO SCH (21:00)
[2019-09-07] MEDS ORDERED: FAMOTIDINE 20 MG TABLET PO SCH (21:00)
[2019-09-07] MEDS: FAMOTIDINE PF 20 MG/2 ML VIAL IVP SCH ×2 (21:00→21:19)
[2019-09-07] MEDS: LISINOPRIL 20 MG TABLET PO SCH (21:20)
[2019-09-07 22:31] LABS: BILIRUBIN,URINE NEGATIVE (NEGATIVE); BLOOD, URINE NEGATIVE (NEGATIVE); CLARITY/URINE CLEAR (CLEAR); COLOR,URINE YELLOW (YELLOW); GLUCOSE,URINE NEGATIVE (NEGATIVE); KETONES,URINE NEGATIVE (NEGATIVE); LEUKOCYTE ESTERASE ,URINE 1+ (NEGATIVE); NITRITE, URINE NEGATIVE (NEGATIVE); PROTEIN URINE NEGATIVE (NEGATIVE)
[2019-09-07 23:11] LABS: RBC,URINE NONE SEEN /HPF (0-3); WBC,URINE 0-3 /HPF (0-3)
[2019-09-07 23:12] LABS: BACTERIA,URINE RARE /HPF (None Seen)
[2019-09-07 23:53] VITALS: BP_SYST 110
[2019-09-08 06:11] LABS: BASOPHILS % (AUTO) 0.8 % (0.0-2.0); EOSINOPHILS # (AUTO) 0.1 K/uL (0.0-0.4); EOSINOPHILS % (AUTO) 3.4 % (0.0-4.0); HEMATOCRIT 37.4 % (36-48); HEMOGLOBIN 12.4 g/dL (12.0-16.0); LYMPHOCYTES # (AUTO) 1.6 K/uL (1.0-5.5); LYMPHOCYTES % (AUTO) 44.1 % (20.5-51.5); MEAN CORPUSCULAR HEMOGLOBIN 30 pg (27-31); MEAN CORPUSCULAR HGB CONC 33 % (32-36); MEAN CORPUSCULAR VOLUME 91 fL (79.0-98.0); MONOCYTES # (AUTO) 0.4 K/uL (0.0-1.0); MONOCYTES % (AUTO) 9.7 % (1.7-9.3); NEUTROPHILS # (AUTO) 1.5 K/uL (1.8-7.7); RED BLOOD CELL COUNT(AUTO) 4.11 MIL/uL (4.2-6.2); RED CELL DISTRIBUTION WIDTH 15.8 % (9.0-15.0); WHITE BLOOD COUNT (AUTO) 3.7 K/uL (4.8-10.8)
[2019-09-08 06:24] LABS: ALBUMIN 2.6 g/dL (3.4-4.8); CALCIUM 7.8 mg/dL (8.4-11.0); CREATININE 0.53 mg/dL (0.55-1.30); POTASSIUM 3.8 mmol/L (3.5-5.1); TOTAL BILIRUBIN 1.4 mg/dL (0.0-1.0)
[2019-09-08 07:11] LABS: PLATELET COUNT (AUTO) 40 K/uL (130-430)
[2019-09-08 07:48] VITALS: BP_SYST 117
[2019-09-08] MEDS ORDERED: BENAZEPRIL HCL 20 MG TABLET (LOTENSIN) PO SCH (09:00)
[2019-09-08] MEDS ORDERED: FOLIC ACID 1 MG TABLET PO SCH (09:00)
[2019-09-08] MEDS ORDERED: THIAMINE HCL 100 MG TABLET PO SCH (09:00)
[2019-09-08] MEDS: ALPRAZolam 0.25 MG TABLET PO SCH ×2 (09:17→13:00)
[2019-09-08] MEDS: amLODIPine BESYLATE 5 MG TABLET PO SCH (09:21)
[2019-09-08] MEDS: LISINOPRIL 20 MG TABLET PO SCH ×2 (09:21→20:40)
[2019-09-08] MEDS: FAMOTIDINE PF 20 MG/2 ML VIAL IVP SCH ×2 (09:22→20:40)
[2019-09-08 12:00] VITALS: BP_SYST 101
[2019-09-08 17:09] VITALS: BP_SYST 109
[2019-09-08] MEDS: FOLIC ACID 1 MG, MVI 10 ML in NACL 0.9% 1,000 ML IV SCH (17:21)
[2019-09-08] MEDS: THIAMINE HCL 100 MG, MAGNESIUM SULFATE 1 GM in NS 100 ML IV SCH (17:22)
[2019-09-08 20:30] VITALS: BP_SYST 120
[2019-09-08] MEDS: ALPRAZolam 0.25 MG TABLET PO PRN (20:44)
[2019-09-08] MEDS: MAG-AL HYDROX/SIMETH 30 ML UDC PO PRN (20:44)
[2019-09-09 00:48] VITALS: BP_SYST 130
[2019-09-09] MEDS ORDERED: traMADol HCL HCL 50 MG TABLET (ULTRAM) PO PRN (06:00)
[2019-09-09] MEDS: ONDANSETRON HCL 4 MG/2 ML VIAL IVP PRN (06:13)
[2019-09-09 06:31] LABS: ALBUMIN 2.7 g/dL (3.4-4.8); CREATININE 0.65 mg/dL (0.55-1.30); POTASSIUM 3.7 mmol/L (3.5-5.1); TOTAL BILIRUBIN 1.4 mg/dL (0.0-1.0)
[2019-09-09 07:39] LABS: BASOPHILS % (AUTO) 0.8 % (0.0-2.0); EOSINOPHILS # (AUTO) 0.1 K/uL (0.0-0.4); EOSINOPHILS % (AUTO) 3.5 % (0.0-4.0); HEMATOCRIT 38.1 % (36-48); HEMOGLOBIN 12.7 g/dL (12.0-16.0); LYMPHOCYTES # (AUTO) 1.5 K/uL (1.0-5.5); LYMPHOCYTES % (AUTO) 40.9 % (20.5-51.5); MEAN CORPUSCULAR HEMOGLOBIN 30 pg (27-31); MEAN CORPUSCULAR HGB CONC 33 % (32-36); MEAN CORPUSCULAR VOLUME 91 fL (79.0-98.0); MONOCYTES # (AUTO) 0.3 K/uL (0.0-1.0); MONOCYTES % (AUTO) 9.1 % (1.7-9.3); NEUTROPHILS # (AUTO) 1.7 K/uL (1.8-7.7); NEUTROPHILS % (AUTO) 45.7 % (40.0-70.0); RED BLOOD CELL COUNT(AUTO) 4.21 MIL/uL (4.2-6.2); RED CELL DISTRIBUTION WIDTH 15.6 % (9.0-15.0); WHITE BLOOD COUNT (AUTO) 3.7 K/uL (4.8-10.8)
[2019-09-09 08:22] VITALS: BP_SYST 135
[2019-09-09] MEDS: FAMOTIDINE PF 20 MG/2 ML VIAL IVP SCH ×2 (08:36→21:26)
[2019-09-09] MEDS: LISINOPRIL 20 MG TABLET PO SCH ×2 (08:37→21:25)
[2019-09-09] MEDS: amLODIPine BESYLATE 5 MG TABLET PO SCH (08:38)
[2019-09-09 10:29] LABS: PLATELET COUNT (AUTO) 43 K/uL (130-430)
[2019-09-09] MEDS ORDERED: LORazepam 2 MG/ML VIAL IVP PRN (11:15)
[2019-09-09 12:47] VITALS: BP_SYST 132
[2019-09-09 16:22] VITALS: BP_SYST 133
[2019-09-09] MEDS: SIMETHICONE 80 MG TAB.CHEW PO SCH ×2 (18:26→21:24)
[2019-09-09] MEDS: FOLIC ACID 1 MG, MVI 10 ML in NACL 0.9% 1,000 ML IV SCH (18:26)
[2019-09-09] MEDS: SUCRALFATE 1 GM TABLET PO SCH ×2 (18:26→21:24)
[2019-09-09] MEDS: THIAMINE HCL 100 MG, MAGNESIUM SULFATE 1 GM in NS 100 ML IV SCH (18:28)
[2019-09-09 20:00] VITALS: BP_SYST 116
[2019-09-09] MEDS: ALPRAZolam 0.25 MG TABLET PO PRN (21:39)
[2019-09-10 00:49] VITALS: BP_SYST 130
[2019-09-10] MEDS: MAG-AL HYDROX/SIMETH 30 ML UDC PO PRN (03:02)
[2019-09-10 05:44] LABS: INR 1.4 (0.8-1.2); PROTHROMBIN TIME 13.8 SECS (9.5-12.5)
[2019-09-10] MEDS: SUCRALFATE 1 GM TABLET PO SCH ×4 (06:06→20:35)
[2019-09-10] MEDS: SIMETHICONE 80 MG TAB.CHEW PO SCH ×4 (06:06→20:35)
[2019-09-10 06:19] LABS: ALBUMIN 2.8 g/dL (3.4-4.8); CALCIUM 8.1 mg/dL (8.4-11.0); CREATININE 0.71 mg/dL (0.55-1.30); TOTAL BILIRUBIN 1.2 mg/dL (0.0-1.0)
[2019-09-10 06:52] LABS: BASOPHILS % (AUTO) 0.8 % (0.0-2.0); EOSINOPHILS # (AUTO) 0.1 K/uL (0.0-0.4); HEMATOCRIT 40.2 % (36-48); HEMOGLOBIN 13.3 g/dL (12.0-16.0); LYMPHOCYTES # (AUTO) 1.7 K/uL (1.0-5.5); LYMPHOCYTES % (AUTO) 42.6 % (20.5-51.5); MEAN CORPUSCULAR HEMOGLOBIN 30 pg (27-31); MEAN CORPUSCULAR HGB CONC 33 % (32-36); MEAN CORPUSCULAR VOLUME 91 fL (79.0-98.0); MONOCYTES # (AUTO) 0.3 K/uL (0.0-1.0); MONOCYTES % (AUTO) 7.8 % (1.7-9.3); NEUTROPHILS # (AUTO) 1.8 K/uL (1.8-7.7); NEUTROPHILS % (AUTO) 45.8 % (40.0-70.0); RED BLOOD CELL COUNT(AUTO) 4.44 MIL/uL (4.2-6.2); RED CELL DISTRIBUTION WIDTH 15.7 % (9.0-15.0)
[2019-09-10 07:24] LABS: PLATELET COUNT (AUTO) 42 K/uL (130-430)
[2019-09-10 08:10] VITALS: BP_SYST 147
[2019-09-10] MEDS: FAMOTIDINE PF 20 MG/2 ML VIAL IVP SCH ×2 (08:44→20:35)
[2019-09-10] MEDS: LISINOPRIL 20 MG TABLET PO SCH ×2 (08:44→20:35)
[2019-09-10] MEDS: amLODIPine BESYLATE 5 MG TABLET PO SCH (08:45)
[2019-09-10 12:49] VITALS: BP_SYST 124
[2019-09-10 16:29] VITALS: BP_SYST 113
[2019-09-10] MEDS: FOLIC ACID 1 MG, MVI 10 ML in NACL 0.9% 1,000 ML IV SCH (17:34)
[2019-09-10] MEDS: THIAMINE HCL 100 MG, MAGNESIUM SULFATE 1 GM in NS 100 ML IV SCH (17:35)
[2019-09-10 20:00] VITALS: BP_SYST 118
[2019-09-11 00:38] VITALS: BP_SYST 122
[2019-09-11] MEDS: SIMETHICONE 80 MG TAB.CHEW PO SCH ×2 (06:06→10:51)
[2019-09-11] MEDS: SUCRALFATE 1 GM TABLET PO SCH ×2 (06:06→10:51)
[2019-09-11 06:16] LABS: CALCIUM 7.9 mg/dL (8.4-11.0); CREATININE 0.77 mg/dL (0.55-1.30)
[2019-09-11 06:26] LABS: BASOPHILS % (AUTO) 0.8 % (0.0-2.0); EOSINOPHILS # (AUTO) 0.2 K/uL (0.0-0.4); EOSINOPHILS % (AUTO) 4.9 % (0.0-4.0); HEMATOCRIT 38.6 % (36-48); HEMOGLOBIN 12.7 g/dL (12.0-16.0); LYMPHOCYTES # (AUTO) 1.5 K/uL (1.0-5.5); MEAN CORPUSCULAR HEMOGLOBIN 30 pg (27-31); MEAN CORPUSCULAR HGB CONC 33 % (32-36); MEAN CORPUSCULAR VOLUME 91 fL (79.0-98.0); MONOCYTES # (AUTO) 0.3 K/uL (0.0-1.0); MONOCYTES % (AUTO) 7.5 % (1.7-9.3); NEUTROPHILS # (AUTO) 1.9 K/uL (1.8-7.7); NEUTROPHILS % (AUTO) 47.8 % (40.0-70.0); RED BLOOD CELL COUNT(AUTO) 4.25 MIL/uL (4.2-6.2); WHITE BLOOD COUNT (AUTO) 3.9 K/uL (4.8-10.8)
[2019-09-11 08:03] VITALS: BP_SYST 139
[2019-09-11] MEDS: amLODIPine BESYLATE 5 MG TABLET PO SCH (08:14)
[2019-09-11] MEDS: LISINOPRIL 20 MG TABLET PO SCH (08:15)
[2019-09-11] MEDS: ALPRAZolam 0.25 MG TABLET PO PRN (08:15)
[2019-09-11] MEDS: FAMOTIDINE PF 20 MG/2 ML VIAL IVP SCH (08:15)
[2019-09-11] MEDS: ONDANSETRON HCL 4 MG/2 ML VIAL IVP PRN (10:50)
[2019-09-11 12:22] VITALS: BP_SYST 126
[2019-09-11] MEDS ORDERED: SUCR1TAB78 PO (12:49)
[2019-09-11 14:21] VITALS: BP_SYST 126
[2019-09-11 16:05] VITALS: BP_SYST 99
[2019-09-12 09:32] LABS: PLATELET COUNT (AUTO) 39 K/uL (130-430)
== END 2019-09-11 16:52 | disposition home or self-care (01) | DRG 241 ==
LOC: SED 13:18 → STU 16:00
PROVIDERS: ADMIT Internal Medicine; ATTEND Internal Medicine
DX: K25.4 Chronic or unspecified gastric ulcer with hemorrhage (principal); D61.818 Other pancytopenia; E44.0 Moderate protein-calorie malnutrition; D68.9 Coagulation defect, unspecified; K92.0 Hematemesis; I85.10 Secondary esophageal varices without bleeding; D69.6 Thrombocytopenia, unspecified; F10.239 Alcohol dependence with withdrawal, unspecified; K74.60 Unspecified cirrhosis of liver; F15.10 Other stimulant abuse, uncomplicated; F41.1 Generalized anxiety disorder; I10 Essential (primary) hypertension; B19.20 Unspecified viral hepatitis C without hepatic coma; G89.29 Other chronic pain; M54.9 Dorsalgia, unspecified; D64.9 Anemia, unspecified; F32.9 Major depressive disorder, single episode, unspecified; Z88.8 Allergy status to other drugs, medicaments and biological substances; Z79.899 Other long term (current) drug therapy
CPT/HCPCS: 36415; 71045; 80048; 80053; 80307; 81000-TC; 81003; 82105; 82150-TC; 82550-TC; 83605; 83690-TC; 83880; 84484; 85025; 85610-TC; 85730-TC; 86710; 87040-TC; 87086; 93005; 96361; 96374; 99285; G0378; G0482; J2060; J2405; J3411; J3475; J3490; J7030; J7050

== ENCOUNTER 2020-03-31 14:39 | Emergency (ER) | payer BC, MEDICAID ==
[~2020-03-31] VITALS: Ht 160 cm; Wt 59.0 kg
[~2020-03-31 14:39] MED LIST changes: +SUCR1TAB78 PO
[2020-03-31 15:25] VITALS: BP_SYST 185
[2020-03-31 15:51] VITALS: BP_SYST 152
[2020-03-31] MEDS ORDERED: cloNIDine HCL 0.1 MG TABLET PO ONE (16:00)
[2020-03-31] MEDS ORDERED: LORazepam 1 MG TABLET PO ONE (16:00)
[2020-03-31] MEDS ORDERED: cloNIDine HCL 0.1 MG TABLET ONE (16:30)
== END 2020-03-31 15:51 | disposition home or self-care (01) ==
LOC: SED 14:39
DX: K74.60 Unspecified cirrhosis of liver (principal); N39.0 Urinary tract infection, site not specified; F10.239 Alcohol dependence with withdrawal, unspecified; I10 Essential (primary) hypertension; Z86.19 Personal history of other infectious and parasitic diseases; Z79.899 Other long term (current) drug therapy; Z88.6 Allergy status to analgesic agent
CPT/HCPCS: 81002; 99283

== ENCOUNTER 2020-04-30 03:48 | Emergency (ER) | payer MEDICAID ==
[~2020-04-30] VITALS: Ht 160 cm; Wt 54.4 kg
--- NOTE | 2020-04-30 03:55 | NUR ---
Patient to ER bed 5 to gown for evaluation. Side rails up. Report given to Tanisha CHAVEZ.
[2020-04-30 03:56] VITALS: BP_SYST 143
--- NOTE | 2020-04-30 03:58 | NUR ---
Patient BIB by BLS/EMT from home. C/O abdominal pain x 3 days. Patient had abdominal pain for 3 days, discharged from [facility] -same symptoms. A/O,X4, left side abdominal pain, pain rate 10/10 (per patient reported).
[2020-04-30] MEDS ORDERED: KETOROLAC TROMETHAMINE 30 MG VIAL IVP ONE (04:00)
[2020-04-30] MEDS ORDERED: NACL 0.9% 1,000 ML IV ONE (04:00)
--- NOTE | 2020-04-30 04:02 | NUR ---
ER at bedside examining patient.
[2020-04-30 04:35] LABS: HEMOGLOBIN 11.8 g/dL (12.0-16.0); MEAN CORPUSCULAR HGB CONC 33 % (32-36)
[2020-04-30 04:40] LABS: MEAN CORPUSCULAR HEMOGLOBIN 28 pg (27-31); MEAN CORPUSCULAR VOLUME 86 fL (79.0-98.0); RED BLOOD CELL COUNT(AUTO) 4.18 MIL/uL (4.2-6.2); RED CELL DISTRIBUTION WIDTH 16.2 % (9.0-15.0); WHITE BLOOD COUNT (AUTO) 3.3 K/uL (4.8-10.8)
[2020-04-30 04:48] LABS: CALCIUM 7.9 mg/dL (8.4-11.0); CREATININE 0.57 mg/dL (0.55-1.30); POTASSIUM 3.4 mmol/L (3.5-5.1)
[2020-04-30 04:52] LABS: PLATELET COUNT (AUTO) 42 K/uL (130-430)
[2020-04-30 04:53] LABS: ATYPICAL LYMPHOCYTES % 2 % (0-0); BAND % (MANUAL) 0 % (0-6); BASOPHILS % (MANUAL) 0 % (0-2); EOSINOPHILS % (MANUAL) 3 % (0-7); LYMPHOCYTES % (MANUAL) 39 % (20-46); MONOCYTES % (MANUAL) 16 % (0-11)
[2020-04-30 04:54] LABS: ALBUMIN 2.9 g/dL (3.4-4.8); TOTAL BILIRUBIN 0.8 mg/dL (0.0-1.0)
--- NOTE | 2020-04-30 05:43 | NUR ---
Patient resting quietly. No acute distress noted. Vital signs within normal range.
[2020-04-30 07:08] VITALS: BP_SYST 122
--- NOTE | 2020-04-30 07:08 | NUR ---
Patient given written and verbal discharge instructions and verbalizes understanding. ER MD discussed with patient the results and treatment provided. Patient in stable condition. ID arm band removed. IV catheter removed intact and dressing applied, no active bleeding. No Rx given. Patient educated on pain management and to follow up with PMD. Pain Scale 2/10. Opportunity for questions provided and answered. Medication side effect fact sheet provided.
== END 2020-04-30 07:08 | disposition home or self-care (01) ==
LOC: SED 03:48
DX: E86.0 Dehydration (principal); F10.20 Alcohol dependence, uncomplicated; I10 Essential (primary) hypertension; K74.69 Other cirrhosis of liver; Z79.899 Other long term (current) drug therapy; Z88.6 Allergy status to analgesic agent
CPT/HCPCS: 36415; 80053; 85007; 85027; 96361; 96374; 99283; G0482; J1885; J7030

== ENCOUNTER 2020-11-05 18:42 | Emergency (ER) | payer MEDICAID, SELFPAY ==
[~2020-11-05] VITALS: Ht 172.7 cm; Wt 55.8 kg
[~2020-11-05 18:42] MED LIST changes: -ALPR0.5T PO; -AMLO5TAB4 PO; -ANT30 PO; -BENA40TA8 PO; +CHOL200075 PO; -FAMO-132 PO; -FOLI-43 PO; +LORA-259 PO; +METO25TA6 PO; +PRO40 PO; -SUCR1TAB78 PO; +THIA50TA10 PO; -Thiamine Hcl PO
[2020-11-05 18:48] VITALS: BP_SYST 149
[2020-11-05 20:06] LABS: HEMATOCRIT 28.3 % (36-48); HEMOGLOBIN 9.3 g/dL (12.0-16.0); MEAN CORPUSCULAR HEMOGLOBIN 25 pg (27-31); MEAN CORPUSCULAR HGB CONC 33 % (32-36); MEAN CORPUSCULAR VOLUME 77 fL (79.0-98.0); RED BLOOD CELL COUNT(AUTO) 3.68 MIL/uL (4.2-6.2); WHITE BLOOD COUNT (AUTO) 2.7 K/uL (4.8-10.8)
[2020-11-05 20:14] LABS: ANION GAP 7 (5-15); CALCIUM 8.9 mg/dL (8.4-11.0); CHLORIDE 105 mmol/L (98-107); CREATININE 1.17 mg/dL (0.55-1.30); GLUCOSE 109 mg/dL (70-99); POTASSIUM 3.6 mmol/L (3.5-5.1); SODIUM SERUM 140 mmol/L (136-145); UREA NITROGEN, BLOOD 9 mg/dL (8-21)
[2020-11-05 20:15] LABS: GFR AFRICAN AMERICAN 61 mL/min (>90)
[2020-11-05 20:21] LABS: ALANINE AMINOTRANSFERASE 49 U/L (12-78); ALBUMIN 2.9 g/dL (3.4-4.8); ASPARTATE AMINOTRANSFERASE 85 U/L (10-37)
[2020-11-05 20:22] LABS: INR 1.5 (0.8-1.2); PROTHROMBIN TIME 15.4 SECS (9.5-12.5)
[2020-11-05 20:34] LABS: PLATELET COUNT (AUTO) 30 K/uL (130-430)
[2020-11-05 20:35] LABS: BAND % (MANUAL) 0 % (0-6); LYMPHOCYTES % (MANUAL) 34 % (20-46)
[2020-11-05 20:36] LABS: BASOPHILS % (MANUAL) 0 % (0-2); C-REACTIVE PROTEIN QUANT < 0.2 mg/dL (0-0.5); EOSINOPHILS % (MANUAL) 3 % (0-7); MONOCYTES % (MANUAL) 10 % (0-11)
[2020-11-05] MEDS ORDERED: CLOT15CR5 TP (20:36)
[2020-11-05 20:54] VITALS: BP_SYST 136
== END 2020-11-05 20:54 | disposition home or self-care (01) ==
LOC: SED 18:42
DX: S80.862A Insect bite (nonvenomous), left lower leg, initial encounter (principal); B35.4 Tinea corporis; I10 Essential (primary) hypertension; Z88.8 Allergy status to other drugs, medicaments and biological substances; Z79.899 Other long term (current) drug therapy; W57.XXXA Bitten or stung by nonvenomous insect and other nonvenomous arthropods, initial encounter; Y93.89 Activity, other specified; Y92.89 Other specified places as the place of occurrence of the external cause; Y99.8 Other external cause status
CPT/HCPCS: 36415; 80053; 83605; 85007; 85027; 85610-TC; 85730-TC; 86140; 99283

== ENCOUNTER 2021-09-05 20:15 | Inpatient (IN) | payer MEDICAID ==
[~2021-09-05] VITALS: Ht 167.6 cm; Wt 69.9 kg
[~2021-09-05 20:15] MED LIST changes: +CLOT15CR5 TP
[2021-09-05 20:30] VITALS: BP_SYST 152
--- NOTE | 2021-09-05 20:39 | NUR ---
ER examining patient in the triage room.
--- NOTE | 2021-09-05 20:43 | NUR ---
Placed in room 4 . Placed on cafeteria monitor, blood pressure machine and pulse oximeter. To gown for exam. Side rails up. Report given to Soha CHAVEZ.
[2021-09-05] MEDS ORDERED: KETOROLAC TROMETHAMINE 30 MG VIAL IVP ONE (20:45)
--- NOTE | 2021-09-05 20:45 | NUR ---
Patient is awake and alert. Pt C/O N/D and lower leg pain and swelling. Pain stated 01/04. No other complaints at this time. VSS. Will continue to monitor.
--- NOTE | 2021-09-05 21:15 | NUR ---
# 22 gauge angiocath placed to LFA. Use of asceptic technique. Opsite placed over site. Blood return noted. Blood for lab drawn from site. Flushed with 10 cc of normal saline. No evidence of infiltration noted. Patient tolerated well.
[2021-09-05 21:19] LABS: BASOPHILS % (AUTO) 0.7 % (0.0-2.0); EOSINOPHILS # (AUTO) 0.1 K/uL (0.0-0.4); EOSINOPHILS % (AUTO) 2.9 % (0.0-4.0); HEMOGLOBIN 8.3 g/dL (12.0-16.0); LYMPHOCYTES # (AUTO) 0.9 K/uL (1.0-5.5); LYMPHOCYTES % (AUTO) 34.8 % (20.5-51.5); MEAN CORPUSCULAR HEMOGLOBIN 21 pg (27-31); MEAN CORPUSCULAR HGB CONC 31 % (32-36); MEAN CORPUSCULAR VOLUME 69 fL (79.0-98.0); MONOCYTES # (AUTO) 0.2 K/uL (0.0-1.0); MONOCYTES % (AUTO) 9.3 % (1.7-9.3); NEUTROPHILS # (AUTO) 1.3 K/uL (1.8-7.7); NEUTROPHILS % (AUTO) 52.3 % (40.0-70.0); RED BLOOD CELL COUNT(AUTO) 3.89 MIL/uL (4.2-6.2); RED CELL DISTRIBUTION WIDTH 18.3 % (9.0-15.0); WHITE BLOOD COUNT (AUTO) 2.4 K/uL (4.8-10.8)
[2021-09-05 21:25] LABS: CALCIUM 8.9 mg/dL (8.4-11.0); CREATININE 0.62 mg/dL (0.55-1.30); POTASSIUM 3.8 mmol/L (3.5-5.1)
[2021-09-05 21:30] LABS: ALBUMIN 3.1 g/dL (3.4-4.8); TOTAL BILIRUBIN 1.4 mg/dL (0.0-1.0)
[2021-09-05] MEDS ORDERED: cefTRIAXone 1 GM IVPB PREMIX 50 ML IV ONE (22:00)
[2021-09-05] MEDS ORDERED: MORPHINE 4 MG INJ. 4 MG/ML VIAL IVP ONE (22:00)
[2021-09-05 22:13] LABS: BILIRUBIN,URINE NEGATIVE (NEGATIVE); BLOOD, URINE NEGATIVE (NEGATIVE); CLARITY/URINE SL CLOUDY (CLEAR); COLOR,URINE YELLOW (YELLOW); GLUCOSE,URINE NEGATIVE (NEGATIVE); KETONES,URINE NEGATIVE (NEGATIVE); LEUKOCYTE ESTERASE ,URINE TRACE (NEGATIVE); NITRITE, URINE POSITIVE (NEGATIVE); PROTEIN URINE NEGATIVE (NEGATIVE)
[2021-09-05] MEDS ORDERED: MORPHINE 2 MG/ML INJ. SYRINGE IVP PRN (22:15)
[2021-09-05 22:17] LABS: UROBILINOGEN,URINE >=8 (0.2-1.0)
[2021-09-05 22:19] LABS: PLATELET COUNT (AUTO) 42 K/uL (130-430)
--- NOTE | 2021-09-05 22:25 | NUR ---
Admit bed requested Patient will be admitted to care of . Admitted to TELE unit. Diagnosis CELLULITIS Inpatient (Yes or No) YES Observation (Yes or No) NO Orientation concerns or request close to nursing station (Yes or No) NO Covid Status PENDING On vent or bipap NO Isolation requirements NO Needs a sitter NO From Home (Yes or if No enter name of facility) YES Requires Dialysis (Yes or No) NO Med Rec Completed (Yes of No) PENDING Addendum: 09/05/21 at 5598 by SDEDPR ADMIT TO TELE
[2021-09-05 22:28] LABS: BACTERIA,URINE MANY /HPF (None Seen); YEAST,URINE Rare /HPF (None Seen)
[2021-09-05 22:29] LABS: MUCUS,URINE 1+ /LPF (None Seen)
--- NOTE | 2021-09-06 00:10 | NUR ---
Patient resting in bed, aware of current POC. VSS. Will continue to monitor.
--- NOTE | 2021-09-06 02:30 | NUR ---
TRANSFER Patient transfered to [facility] unit room 109C. All belongings sent with patient. Report given bedside to SCOTT Mclean. VSS at time of transfer.
--- NOTE | 2021-09-06 04:15 | NUR ---
ADMISSION: The patient, RAZIA CARBALLO, 60 y/o, F admitted by KELLEY ADAMS DO, was given written information regarding hospital policies, unit procedures and contact persons. Valuables were checked and PROCEDURES explained call villasenor given to patient .
--- NOTE | 2021-09-06 04:31 | NUR ---
Patient REFUSE to Remove BLACK PANTS for skin assessment .
--- NOTE | 2021-09-06 04:31 | NUR ---
PICTURE TAKEN OF UPPER CHEST AREA SKIN LESIONS .
--- NOTE | 2021-09-06 04:32 | NUR ---
PICTURE TAKEN OF RIGHT LOWER LEG SKIN LESIONS & PUT IN MEDICAL RECORD / .
[2021-09-06 04:37] VITALS: BP_SYST 137
[2021-09-06] MEDS ORDERED: MORPHINE 2 MG/ML INJ. SYRINGE IVP PRN ×2 (07:15)
[2021-09-06] MEDS ORDERED: LORazepam 2 MG/ML VIAL IVP PRN (07:15)
[2021-09-06] MEDS ORDERED: ZOLPIDEM TARTRATE 5 MG TABLET PO PRN (07:15)
[2021-09-06] MEDS ORDERED: NALOXONE HCL 0.4 MG/ML AMP (NARCAN) IVP PRN ×2 (07:15)
[2021-09-06] MEDS ORDERED: MUPIROCIN 2% TOPICAL OINTMENT 22 GM NS PRN (07:15)
[2021-09-06] MEDS ORDERED: DOCUSATE SODIUM 100 MG CAPSULE PO PRN (07:15)
[2021-09-06] MEDS ORDERED: POTASSIUM CHLORIDE 20 MEQ TAB.PRT.SR PO PRN (07:15)
[2021-09-06] MEDS ORDERED: ONDANSETRON HCL 4 MG/2 ML VIAL IVP PRN (07:15)
[2021-09-06] MEDS ORDERED: MAGNESIUM SULFATE 50 ML IV PRN (07:15)
[2021-09-06] MEDS ORDERED: ACETAMINOPHEN 325 MG TABLET PO PRN ×2 (07:15→07:30)
[2021-09-06 08:00] VITALS: BP_SYST 111
[2021-09-06] MEDS: PANTOPRAZOLE SODIUM 40 MG TAB PO SCH ×2 (08:29→22:11)
[2021-09-06] MEDS ORDERED: THIAMINE HCL 100 MG TABLET PO ONE (09:15)
--- NOTE | 2021-09-06 11:04 | NUR ---
NOTIFIED FOR CONSULT ORDERING PHY: REASON FOR CONSULT: INT N,V DIALED: [phone] SPOKE TO: BENITO
[2021-09-06 12:00] VITALS: BP_SYST 119
--- NOTE | 2021-09-06 13:48 | NUR ---
Truck Loader And Unloader OTTER TRAWLER BOATSWAIN Roro attempted to make contact with patient at bedside. OTTER TRAWLER BOATSWAIN announced herself, and stated patient's name 3x. Patient responded, but was difficult to hear as she appeared groggy, did not open her eyes and was mumbling. OTTER TRAWLER BOATSWAIN again attempted introductions but patient mumbled "no". OTTER TRAWLER BOATSWAIN acknowledged patient's response and shared another contact would be attempted at a later time. Patient's response was unintelligible. OTTER TRAWLER BOATSWAIN will continue to be available as needed.
[2021-09-06 16:00] VITALS: BP_SYST 123
--- NOTE | 2021-09-06 16:27 | NUR ---
Production Editor COTA Roro met with patient at bedside. COTA completed introductions and patient was open to contact. Patient was now awake, alert and orientated x3. Patient currently resides in [facility], a low-income housing/apartment complex for formerly homeless persons, in [place]. Mental Health- Patient shares having had depression and anxiety, but shares she feels this when experiencing ETOH withdrawals. She denies any previous or current SI. Over the last 7 years she has utilized supports from [facility] PER Daughter- Patient has had a suicide attempt and completed inpatient treatment about 7 years ago. She stated patient suffers from depression. Substance Abuse- Patient disclosed struggling with ETOH x7 years, with several inpatient treatment stays. Her longest time of sobriety is 1 year. COTA provided affirmations and reflected on her prior sobriety. COTA utilized elements of problem solving therapy to explore possible triggers for relapse. Social- Patient shares she has an adult daughter Sara Abrams who provides support. At this time this daughter is being treated for Breast Cancer. PER Daughter- Patient also receives support from her siblings Mahin and Breanne who also serve as her caregivers (daughter was not able to elaborate on this). During contact, heavy equipment technician arrived and stated she would be performing ultrasound for about an hour and patient expressed not wanting to speak in front of tech and requested for COTA to return *Patient's daughter was also contacted to obtain information* PLAN- COTA will return in the morning for continued assessment of supports needed.
[2021-09-06 20:00] VITALS: BP_SYST 122
[2021-09-06] MEDS ORDERED: cefTRIAXone 1 GM IVPB PREMIX 50 ML IV SCH (21:00)
[2021-09-06] MEDS: cefTRIAXone 1 GM IVPB PREMIX 50 ML IV SCH (22:11)
[2021-09-07] MEDS ORDERED: MEPERIDINE 100 MG INJ. 100 MG/ML VIAL ONE (06:58)
[2021-09-07] MEDS ORDERED: SIMETHICONE 40 MG/0.6 ML ML ONE (06:58)
[2021-09-07] MEDS ORDERED: MIDAZOLAM HCL 5 MG/5 ML VIAL ONE (06:58)
[2021-09-07 07:20] LABS: BARBITURATE, URINE NEGATIVE (NEG <=200); BENZODIAZEPINE, URINE NEGATIVE (NEG <=150); CANNABINOID, URINE NEGATIVE (NEG <=50); COCAINE, URINE NEGATIVE (NEG <=150); METHAMPHETAMINES SCREEN,URINE POSITIVE (NEG <=500); OPIATE, URINE POSITIVE (NEG <=100); PHENCYCLIDINE SCREEN,URINE NEGATIVE (NEG <=25); UR TRICYCLIC ANTIDEPRESSANTS NEGATIVE (NEG <=300); URINE AMPHETAMINE POSITIVE (NEG <=500); URINE METHADONE NEGATIVE (NEG <=200); URINE OXYCODONE SCREEN NEGATIVE (NEG <=100); URINE PROPOXYPHENE SCREEN NEGATIVE (NEG <=300)
[2021-09-07 07:36] LABS: BASOPHILS % (AUTO) 0.6 % (0.0-2.0); EOSINOPHILS # (AUTO) 0.1 K/uL (0.0-0.4); EOSINOPHILS % (AUTO) 3.3 % (0.0-4.0); HEMATOCRIT 26.9 % (36-48); HEMOGLOBIN 8.2 g/dL (12.0-16.0); LYMPHOCYTES # (AUTO) 0.8 K/uL (1.0-5.5); LYMPHOCYTES % (AUTO) 39.1 % (20.5-51.5); MEAN CORPUSCULAR HEMOGLOBIN 21 pg (27-31); MEAN CORPUSCULAR HGB CONC 30 % (32-36); MEAN CORPUSCULAR VOLUME 69 fL (79.0-98.0); MONOCYTES # (AUTO) 0.2 K/uL (0.0-1.0); MONOCYTES % (AUTO) 10.4 % (1.7-9.3); NEUTROPHILS % (AUTO) 46.6 % (40.0-70.0); RED BLOOD CELL COUNT(AUTO) 3.88 MIL/uL (4.2-6.2); RED CELL DISTRIBUTION WIDTH 18.3 % (9.0-15.0); WHITE BLOOD COUNT (AUTO) 2.1 K/uL (4.8-10.8)
[2021-09-07 08:00] VITALS: BP_SYST 156
[2021-09-07] MEDS ORDERED: DIPHENHYDRAMINE INJ 50 MG/ML VIAL ONE (08:13)
[2021-09-07 08:23] LABS: INR 1.5 (0.8-1.2); PROTHROMBIN TIME 15.1 SECS (9.5-12.5)
[2021-09-07 08:47] LABS: PLATELET COUNT (AUTO) 35 K/uL (130-430)
[2021-09-07 09:03] LABS: TOTAL IRON BIND. CAPACITY 510 ug/dL (250-450)
[2021-09-07 09:16] LABS: ALBUMIN 2.9 g/dL (3.4-4.8); CALCIUM 7.8 mg/dL (8.4-11.0); CREATININE 0.69 mg/dL (0.55-1.30); POTASSIUM 3.5 mmol/L (3.5-5.1)
[2021-09-07 09:40] LABS: TOTAL BILIRUBIN 1.5 mg/dL (0.0-1.0)
[2021-09-07] MEDS: THIAMINE HCL 100 MG TABLET PO SCH (10:17)
[2021-09-07] MEDS: PANTOPRAZOLE SODIUM 40 MG TAB PO SCH ×2 (10:17→21:43)
[2021-09-07] MEDS: PROPRANOLOL HCL 10 MG TABLET (INDERAL) PO SCH ×2 (10:18→21:44)
--- NOTE | 2021-09-07 11:16 | NUR ---
Director Clinical Pharmacology MASS COMMUNICATIONS INSTRUCTOR Roro attempted contact with patient as she requested followup, but she was sleeping. MASS COMMUNICATIONS INSTRUCTOR will continue to be available as needed.
[2021-09-07 12:31] VITALS: BP_SYST 137
[2021-09-07 16:44] VITALS: BP_SYST 105
[2021-09-07] MEDS ORDERED: cefTRIAXone 1 GM IVPB PREMIX 50 ML IV ONE (21:53)
[2021-09-07] MEDS: cefTRIAXone 1 GM IVPB PREMIX 50 ML IV SCH (21:57)
[2021-09-08 00:30] VITALS: BP_SYST 137
--- NOTE | 2021-09-08 01:42 | NUR ---
BEGINING OF SHIFT ASSESSMENT DONE ADN NO C/O PAIN AND NO RESP DISTRESS, PT AMBULATED TO THE RESTROOM AND BACK TO BED INDEPENDENTLY AND CHNAGED GOWN HERSELF. MEDS GIVEN AND PT HELP WITH REPOSITIONING BY COURIER, CARE RESUMED
--- NOTE | 2021-09-08 05:13 | NUR ---
REASSESSEDT AND PT IS RESTING COMFORTABLY AND NO CHANGE IN CONDITION, CARE RESUMED
--- NOTE | 2021-09-08 07:27 | NUR ---
GAVE REPORT TO GILLES CHAVEZ. AND DISCUSSED PT CHART AND ORDERS. TRANSFERED CARE.
[2021-09-08 07:54] LABS: ALBUMIN 2.6 g/dL (3.4-4.8); CREATININE 0.69 mg/dL (0.55-1.30); TOTAL BILIRUBIN 1.3 mg/dL (0.0-1.0)
--- NOTE | 2021-09-08 08:00 | NUR ---
OPENING NOTES: PATIENT EATING BREAKFAST. BREATHING EVEN AND NO LABORED TO RA. DENIES ANY DISCOMFORT AT THIS TIME. FALL, SAFETY AND ASPIRATION MEASURES REINFORCED. CALL LIGHT WITHIN REACH.:
[2021-09-08 08:15] VITALS: BP_SYST 128
[2021-09-08 08:58] LABS: BASOPHILS % (AUTO) 0.7 % (0.0-2.0); EOSINOPHILS # (AUTO) 0.1 K/uL (0.0-0.4); EOSINOPHILS % (AUTO) 3.1 % (0.0-4.0); HEMOGLOBIN 7.9 g/dL (12.0-16.0); LYMPHOCYTES # (AUTO) 1.2 K/uL (1.0-5.5); LYMPHOCYTES % (AUTO) 36.4 % (20.5-51.5); MEAN CORPUSCULAR HEMOGLOBIN 21 pg (27-31); MEAN CORPUSCULAR HGB CONC 30 % (32-36); MEAN CORPUSCULAR VOLUME 70 fL (79.0-98.0); MONOCYTES # (AUTO) 0.4 K/uL (0.0-1.0); MONOCYTES % (AUTO) 11.5 % (1.7-9.3); NEUTROPHILS # (AUTO) 1.6 K/uL (1.8-7.7); RED BLOOD CELL COUNT(AUTO) 3.71 MIL/uL (4.2-6.2); RED CELL DISTRIBUTION WIDTH 18.7 % (9.0-15.0); WHITE BLOOD COUNT (AUTO) 3.4 K/uL (4.8-10.8)
[2021-09-08] MEDS ORDERED: FOLI-43 PO (09:10)
[2021-09-08] MEDS ORDERED: HYDR-3698 PO (09:11)
[2021-09-08 10:07] LABS: FOLATE (FOLIC ACID) 13.9 ng/mL (>3.0)
[2021-09-08] MEDS: PANTOPRAZOLE SODIUM 40 MG TAB PO SCH (10:07)
[2021-09-08] MEDS: THIAMINE HCL 100 MG TABLET PO SCH (10:07)
[2021-09-08] MEDS: PROPRANOLOL HCL 10 MG TABLET (INDERAL) PO SCH (10:08)
[2021-09-08 11:02] LABS: PLATELET COUNT (AUTO) 42 K/uL (130-430)
[2021-09-08 12:07] LABS: HEPATITIS A AB, IgM Negative (Negative); HEPATITIS B CORE AB, IgM Negative (Negative); HEPATITIS B SURFACE AG Negative (Negative)
[2021-09-08 12:24] VITALS: BP_SYST 105
--- NOTE | 2021-09-08 13:14 | NUR ---
Dietitian Recommendations * 2 gm Na diet, Cuong BID (supplement yields 190 kcal/day, 5 gm protein/day) SIGRID GASPAR Please refer to Nutrition Assessment for details. Addendum: 09/08/21 at [address] Amended: Links added.
[2021-09-08 15:13] VITALS: BP_SYST 124
[2021-09-08 15:24] LABS: NEUTROPHILS % (AUTO) 48.3 % (40.0-70.0)
--- NOTE | 2021-09-08 16:01 | NUR ---
Recyclable Materials Collector STUD DAIRY CATTLE FARMER met with patient at bedside. Patient was awake sitting in bed, alert and oriented x4. Substance Abuse- STUD DAIRY CATTLE FARMER and Patient discussed the impact of her substance abuse on her physical health. Patient acknowledged this concern and expressed wanting to make a change and stated "I'm tired of this". STUD DAIRY CATTLE FARMER acknowledged this and reflected on her times of sobriety in an effort to support recognition of her strengths. STUD DAIRY CATTLE FARMER encouraged patient to explore substance use treatment options as patient states her plan is 'to not drink". Mental Health- Patient expressed feeling depressed and anxious sometimes at home. She disclosed 3 prior suicide attempts. STUD DAIRY CATTLE FARMER assessed for current suicidality, but patient denies any current SI. Social- Patient again discussed having safe support in her daughter Sara, and shares her son will be released from long-term this October. She recognizes that some persons around her served as a trigger for relapse and expressed recognition of needing "safe friends". Supports- Patient shared she has received intensive case management supports from [facility] and would like to again pursue this so that she can change her housing location and obtain additional information on medical care and mental health care. Plan- Patient requested support in obtaining contact information for [facility]. STUD DAIRY CATTLE FARMER also provided the following resources: -[facility] Substance Abuse Treatment services flyer - Alcohol/Substance Abuse resource packet - Community Services Resource Packet -Crisis Text Line Flyer STUD DAIRY CATTLE FARMER will continue to be available as needed. Addendum: 09/08/21 at 1616 by Roro Logan MSW STUD DAIRY CATTLE FARMER contacted [facility] According to Reji albert Judy, the patient's current Shingle Bolt Cutter is Ambar. Her last appointment was 08/04/2021. He shared patient had several previous appointments but cancelled them or was a no show. He also shared Abigail is patient's Beader Tender. Reji stated he would notify patient's treatment team of patient's current needs and they would reach out to her. STUD DAIRY CATTLE FARMER also provided him with contact information STUD DAIRY CATTLE FARMER provided this information to patient. STUD DAIRY CATTLE FARMER will continue to be available as needed.
--- NOTE | 2021-09-08 16:30 | NUR ---
Wound Evaluation: Late note for 09/08/2021 at 1630 secondary to patient care. Wound Consult ordered for Low Neto Score. Patient evaluated for a low Neto score of 17. Patient was awake, alert, oriented, and received in a Kodak Bed with an Isoflex TAYLOR mattress. Patient is able to turn in bed independently. Skin Assessment: 1. Right Distal [place]: Chronic wound of unknown etiology, present on admission. Wound bed has 100% brown eschar. No odor, no drainage. Periwound intact. Dry, stable. Wound measures 7.2 cm x 3.8 cm. 2. Right [place] Distal and Medial to Site 1 Chronic wound of unknown etiology, present on admission. Wound bed has 100% brown eschar. No odor, no drainage. Periwound intact. Dry, stable. Wound measures 2.4 cm x 1.2 cm. Recommend: [place] sites with Betadine daily. May apply lotion to pruritic areas twice daily for pruritus (do not apply lotion to eschar sites). 3. Upper chest: Multiple dry scabs, present on admission. Patient says she is 'itchy and scratches her chest' a lot. Recommend: No dressings needed. Continue to monitor site every shift. May apply lotion to chest area twice daily for pruritus. Recommend: Encourage and assist patient as needed with repositioning every 2 hours with pillow support. Elevate, off-load and float bilateral heels with pillows. Offload pressure areas with pillows for pressure re-distribution. Perform skin care and monitor skin integrity Q shift.
[2021-09-08 17:19] VITALS: BP_SYST 147
[2021-09-08] MEDS ORDERED: NITR-85 PO (17:40)
--- NOTE | 2021-09-08 18:20 | NUR ---
D/C Patient Patient given medication reconciliation form and D/C instructions. Exit Care provided. Patient verbalized understanding. MD discussed with patient the results and treatment provided. Ambulatory with steady gait for discharge to home. Patient in stable condition, ID band removed. IV catheter removed, intact and dressing applied, no active bleeding. All belongings sent with patient. Addendum: 09/08/21 at 1821 by Iglesia Ashley RN ACTUAL TIME OF DISCHARGE 1730.
[2021-09-11 16:44] LABS: AFP, TUMOR MARKER 12.8 ng/mL (0.0-9.2); FERRITIN 14 ng/mL (15-150)
== END 2021-09-08 17:30 | disposition home or self-care (01) | DRG 241 ==
LOC: SED 20:15 → SMU 22:13
PROVIDERS: ADMIT General Practice; ATTEND General Practice
PROC: 0DB78ZX Excision of Stomach, Pylorus, Via Natural or Artificial Opening Endoscopic, Diagnostic (ICD-10-PCS; principal; 2021-09-07 08:30)
PROC: 06L38CZ Occlusion of Esophageal Vein with Extraluminal Device, Via Natural or Artificial Opening Endoscopic (ICD-10-PCS; 2021-09-07 08:30)
DX: K29.71 Gastritis, unspecified, with bleeding (principal); D61.818 Other pancytopenia; E44.1 Mild protein-calorie malnutrition; D68.9 Coagulation defect, unspecified; K30 Functional dyspepsia; I85.10 Secondary esophageal varices without bleeding; K70.30 Alcoholic cirrhosis of liver without ascites; B19.20 Unspecified viral hepatitis C without hepatic coma; N39.0 Urinary tract infection, site not specified; F10.20 Alcohol dependence, uncomplicated; Y90.9 Presence of alcohol in blood, level not specified; Z20.822 Contact with and (suspected) exposure to COVID-19; E80.6 Other disorders of bilirubin metabolism; K31.89 Other diseases of stomach and duodenum; F19.90 Other psychoactive substance use, unspecified, uncomplicated; L98.9 Disorder of the skin and subcutaneous tissue, unspecified; Z88.8 Allergy status to other drugs, medicaments and biological substances; Z79.899 Other long term (current) drug therapy
CPT/HCPCS: 36415; 43239; 43244; 71045; 74170-TC; 76376; 76700-TC; 80053; 80074; 80307; 81000; 82105; 82607; 82728; 82746; 82977; 83036; 83540; 83550; 83605; 83690; 83735; 85025; 85610-TC; 85730-TC; 87040; 87081; 87086; 88305; 88312; 88313; 96365; 96375; 99285; G0482; J0696; J1200; J1885; J2175; J2250; J2270; Q9967

== ENCOUNTER 2021-12-01 18:18 | Inpatient (IN) | payer MEDICAID ==
[~2021-12-01] VITALS: Ht 160 cm; Wt 60.0 kg
[~2021-12-01 18:18] MED LIST changes: +FOLI-43 PO; +HYDR-3698 PO; +NITR-85 PO
[2021-12-01 18:54] VITALS: BP_SYST 147
--- NOTE | 2021-12-01 18:54 | NUR ---
Pt triaged and placed in WR pending bed availability.
--- NOTE | 2021-12-01 19:02 | NUR ---
Pt here from home reporting R LE swelling x 1 month. Pt also reports RLQ pain 10/10 x 1 month. Alert and oriented upon face to face assessment. Pt has extensive hx of cirrhosis, Hep C, and GI bleeding with esophageal banding. Pt vague re ETOH hx. Whelchair provided due to tremors and slightly unsteady gait noted. Pt to be placed in next available bed in main ED.
--- NOTE | 2021-12-01 19:08 | NUR ---
Report given to Daria CHAVEZ to assume care of pt
--- NOTE | 2021-12-01 20:50 | NUR ---
CATARINA Paredes at bedside examining patient.
--- NOTE | 2021-12-01 20:53 | NUR ---
Placed in room 7 . Placed on quality assurance monitor body, blood pressure machine and pulse oximeter. To gown for exam. Side rails up.
[2021-12-01] MEDS ORDERED: PIPERACILLIN/TAZO 3.375 GM in NS 50 ML IV ONE (21:30)
[2021-12-01] MEDS ORDERED: VANCOMYCIN HCL 1,000 MG in NS 250 ML IV ONE (21:30)
[2021-12-01 22:26] LABS: ANION GAP 5 (5-15); CALCIUM 8.5 mg/dL (8.4-11.0); CHLORIDE 105 mmol/L (98-107); CREATININE 0.61 mg/dL (0.55-1.30); GLUCOSE 101 mg/dL (70-99); POTASSIUM 3.9 mmol/L (3.5-5.1); SODIUM SERUM 136 mmol/L (136-145); UREA NITROGEN, BLOOD 14 mg/dL (8-21)
[2021-12-01 22:42] LABS: BASOPHILS % (AUTO) 0.7 % (0.0-2.0); EOSINOPHILS # (AUTO) 0.1 K/uL (0.0-0.4); EOSINOPHILS % (AUTO) 4.7 % (0.0-4.0); HEMATOCRIT 26.1 % (36-48); HEMOGLOBIN 8.2 g/dL (12.0-16.0); LYMPHOCYTES # (AUTO) 0.8 K/uL (1.0-5.5); LYMPHOCYTES % (AUTO) 37.7 % (20.5-51.5); MEAN CORPUSCULAR HEMOGLOBIN 21 pg (27-31); MEAN CORPUSCULAR HGB CONC 31 % (32-36); MEAN CORPUSCULAR VOLUME 67 fL (79.0-98.0); MONOCYTES # (AUTO) 0.3 K/uL (0.0-1.0); MONOCYTES % (AUTO) 12.9 % (1.7-9.3); RED BLOOD CELL COUNT(AUTO) 3.91 MIL/uL (4.2-6.2); RED CELL DISTRIBUTION WIDTH 19.6 % (9.0-15.0); WHITE BLOOD COUNT (AUTO) 2.2 K/uL (4.8-10.8)
[2021-12-01 22:45] LABS: ALANINE AMINOTRANSFERASE 47 U/L (12-78); ALBUMIN 2.6 g/dL (3.4-4.8); ASPARTATE AMINOTRANSFERASE 69 U/L (10-37); TOTAL BILIRUBIN 0.9 mg/dL (0.0-1.0)
[2021-12-01 22:49] LABS: C-REACTIVE PROTEIN QUANT < 0.2 mg/dL (0-0.5); GFR AFRICAN AMERICAN 129 mL/min (>90)
[2021-12-01] MEDS ORDERED: VANCOMYCIN HCL 1000 MG/VIAL IV ONE (22:51)
--- NOTE | 2021-12-01 23:04 | NUR ---
RITA SAMPLE SENT TO LAB.
[2021-12-01 23:43] LABS: ERYTHROCYTE SEDIMENTATION RATE 13 MM/HR (0-20)
[2021-12-01 23:48] LABS: PLATELET COUNT (AUTO) 32 K/uL (130-430)
[2021-12-02 00:18] LABS: BILIRUBIN,URINE NEGATIVE (NEGATIVE); BLOOD, URINE NEGATIVE (NEGATIVE); CLARITY/URINE CLEAR (CLEAR); COLOR,URINE YELLOW (YELLOW); GLUCOSE,URINE NEGATIVE (NEGATIVE); KETONES,URINE NEGATIVE (NEGATIVE); LEUKOCYTE ESTERASE ,URINE 1+ (NEGATIVE); NITRITE, URINE NEGATIVE (NEGATIVE); PH,URINE 6.5 (5.0-8.0); PROTEIN URINE NEGATIVE (NEGATIVE)
[2021-12-02 00:32] LABS: BACTERIA,URINE FEW /HPF (None Seen); MUCUS,URINE 1+ /LPF (None Seen); RBC,URINE 0-3 /HPF (0-3)
[2021-12-02] MEDS ORDERED: PIPERACILLIN/TAZOBACTAM 3.375 GM/VIAL (ZOSYN) IV ONE (01:19)
--- NOTE | 2021-12-02 01:30 | NUR ---
Pt resting comfortbly in bed AOX4 VSS Able to make needs known Verbally responsive Will continue to monitor
--- NOTE | 2021-12-02 02:44 | NUR ---
Admit bed requested Patient will be admitted to care of . Admitted to MED SURG unit. Diagnosis: R FOOT CELLULITIS. Inpatient (Yes or No) Y Observation (Yes or No) Y Orientation concerns or request close to nursing station (Yes or No) N Covid Status: NEGATIVE From Home (Yes or if No enter name of facility) Y
[2021-12-02] MEDS ORDERED: NACL 0.9% 1,000 ML IV SCH (03:00)
[2021-12-02] MEDS ORDERED: MORPHINE 2 MG/ML INJ. SYRINGE IVP PRN ×2 (03:00→08:15)
--- NOTE | 2021-12-02 04:37 | NUR ---
Pt resting comfortbly in bed AOX4 VSS Able to make needs known Verbally responsive Will continue to monitor
[2021-12-02 05:15] VITALS: BP_SYST 148
--- NOTE | 2021-12-02 05:22 | NUR ---
Patient will be admitted to care of [facility]. Admitted to MS unit. Will go to room 105A. Belongings list completed. Complete and up to date summary report printed. SBAR report to be given at bedside with opportunity for questions.
--- NOTE | 2021-12-02 05:38 | NUR ---
Pt arrived from ED (Home --> ED --> MST Rm 105A) via [facility]. Pt situated self in bed w/o much assist. Pt A+O*NPTE. Pt familiar w call light controls. Pt's cc RFt Cellulitis. Pt also has numerous healed spots on both mid-ankles to feet that are approx. 1/3d diameter of a dime. Pt reports they are from Hepatitis C. She also reports Cirrhosis of the liver d/t Hep. C. Pt ambulatory. Last hospital visit was in Sep, 2021, to [facility].
--- NOTE | 2021-12-02 07:30 | NUR ---
OPENING NOTE: Received patient in bed, alert, oriented x4, able to make her needs known. IV in place and patent. BRP, safety precaution observed, siderails up, call light within reach. Will continue to monitor.
[2021-12-02 08:00] VITALS: BP_SYST 149
[2021-12-02] MEDS ORDERED: ZOLPIDEM TARTRATE 5 MG TABLET PO PRN (08:15)
[2021-12-02] MEDS ORDERED: NALOXONE HCL 0.4 MG/ML AMP (NARCAN) IVP PRN ×2 (08:15)
[2021-12-02] MEDS ORDERED: POTASSIUM CHLORIDE 20 MEQ TAB.PRT.SR PO PRN (08:15)
[2021-12-02] MEDS ORDERED: LORazepam 2 MG/ML VIAL IVP PRN (08:15)
[2021-12-02] MEDS ORDERED: ACETAMINOPHEN 325 MG TABLET PO PRN (08:15)
[2021-12-02] MEDS ORDERED: MAGNESIUM SULFATE 50 ML IV PRN (08:15)
[2021-12-02] MEDS ORDERED: MUPIROCIN 2% TOPICAL OINTMENT 22 GM NS PRN (08:15)
--- NOTE | 2021-12-02 08:22 | NUR ---
CONSULTATION PAGED REASON FOR CONSULTATION:THROMBOCYTOPENIA WAS CONSULT CALLED?Y -PERSON WHO WAS NOTIFIEDROY: CONSULTING PHYSICIAN:ISIDRA ADAMS ZOO CARETAKER SPECIALTY:HEMARTOLOG/ ZOO CARETAKER PHONE NUMBER:[phone] REQUESTING PHYSICIAN:[facility]
--- NOTE | 2021-12-02 08:29 | NUR ---
CONSULTATION PAGED REASON FOR CONSULTATION:R FOOT CELLULITIS WAS CONSULT CALLED?Y -PERSON WHO WAS NOTIFIED:JHONY CONSULTING PHYSICIAN:SUMAYA ERNST HEAD OF QUALITY SPECIALTY:ID IDCONSULTANT PHONE NUMBER:[phone] REQUESTING PHYSICIAN: [facility]
[2021-12-02] MEDS: NACL 0.9% 1,000 ML IV SCH ×2 (08:30→19:22)
[2021-12-02] MEDS: MORPHINE 2 MG/ML INJ. SYRINGE IVP PRN (08:35)
[2021-12-02] MEDS: METOPROLOL TARTRATE 25 MG TABLET PO SCH (08:46)
[2021-12-02] MEDS: FOLIC ACID 1 MG TABLET PO SCH (08:46)
[2021-12-02] MEDS: FERROUS SULFATE 325 MG TABLET.DR PO SCH ×2 (08:46→23:15)
[2021-12-02 09:50] LABS: TOTAL IRON BIND. CAPACITY 452 ug/dL (250-450)
--- NOTE | 2021-12-02 10:00 | NUR ---
SPOKE TO DR. LINN: SPOKE TO DR. LINN AND NEW ORDERS RECEIVED (VANCOMYCIN IV PER PHARMACY AND MAXIPIME 2 G IV Q12H).
[2021-12-02] MEDS: CEFEPIME 2 GM in D5W 100 ML IV SCH ×2 (11:08→23:17)
[2021-12-02] MEDS: ONDANSETRON HCL 4 MG/2 ML VIAL IVP PRN ×2 (11:18→17:12)
[2021-12-02 12:02] VITALS: BP_SYST 138
[2021-12-02] MEDS: VANCOMYCIN HCL 500 MG in NS 100 ML IV SCH ×2 (12:04→23:18)
[2021-12-02] MEDS: THIAMINE HCL 100 MG TABLET PO SCH (16:15)
[2021-12-02 17:20] VITALS: BP_SYST 132
[2021-12-02 18:47] LABS: BILIRUBIN,URINE NEGATIVE (NEGATIVE); BLOOD, URINE NEGATIVE (NEGATIVE); COLOR,URINE YELLOW (YELLOW); GLUCOSE,URINE NEGATIVE (NEGATIVE); KETONES,URINE NEGATIVE (NEGATIVE); LEUKOCYTE ESTERASE ,URINE 1+ (NEGATIVE); NITRITE, URINE NEGATIVE (NEGATIVE); PROTEIN URINE NEGATIVE (NEGATIVE)
--- NOTE | 2021-12-02 18:50 | NUR ---
CLOSING NOTES: PATIENT RESTING IN BED. NO S/S OF ACUTE DISTRESS NOTED. DENIES ANY DISCOMFORT AT THIS TIME. FALL AND SAFETY MEASURES PROVIDED. CALL LIGHT WITHIN . NEEDS MET THROUGHOUT SHIFT. WILL CONTINUE MONITOR UNTIL ENDORSE TO INSTRUMENT CALIBRATOR RN.
[2021-12-02 18:53] LABS: CLARITY/URINE SLIGHTLY HAZY (CLEAR)
[2021-12-02 18:57] LABS: BACTERIA,URINE FEW /HPF (None Seen); MUCUS,URINE None Seen /LPF (None Seen); RBC,URINE NONE SEEN /HPF (0-3)
[2021-12-02 20:00] VITALS: BP_SYST 141
--- NOTE | 2021-12-02 20:00 | NUR ---
PM OPENING NOTES HAND-OFF REPORT RECEIVED FROM FANNIE CHAVEZ. PT RECEIVED A/0X4 WITH RIGHT FOOT CELLULITIS AND RADIATING DISCOMFORT FROM FOOT TO GROIN. CURRENTLY LYING IN BED WITH LOW MOAN STATED HEAD ACHE PAIN RADIATING FROM BACK OF NECK TO FOREHEAD. "I WAS MEDICATED NOT LONG AGO I AM STARTING TO FEEL BETTER SINCE I ARRIVED" SISTER ARRIVED AT BEDSIDE ASSISTING PT WITH SNACKS. RIGHT FOOT PEDAL PULSES 2+, TOES WARM AND PINK, WIGGLE WELL WITH CAP REFILL < 3 SEC. NOTED +1 EDEMA AND MILDLY GEN IN COLOR COMPARED TO LEFT FOOT. ENC. PT TO KEEP FOOT ELEVATED ON PILLOW. PT STATED UNDERSTOOD. 20 G TO LAC NS @ 90 ML/H. PT GAIT OBSERVED AND STEADY. BED IN LOWEST POSITION WITH WHEELS LOCKED AND CALL LIGHT WITHIN EASY REACH. BED ALARM ON AND WILL CONTINUE TO OBSERVE GAIT BEFORE TOTALLY INDEPENDENT FOR BRP. PT STATED UNDERSTOOD.
[2021-12-02] MEDS ORDERED: SOD FERRIC GLUC COMPLEX/SUC 125 MG in NS 100 ML IV SCH (21:00)
--- NOTE | 2021-12-03 | NUR ---
PT CONT. WITH STEADY GAIT NOTED . BED ALARM OFF. PT INDEPENDENT TO BRP AND STATES HEADACHE BETTER "CAN I HAVE MORE JELLO AND SOME CRACKERS?".
--- NOTE | 2021-12-03 00:05 | NUR ---
8521 DR. LINN BEDSIDE ROUNDS.
[2021-12-03 04:06] LABS: HEMOGLOBIN A1C 5.5 % (4.8-5.6)
[2021-12-03 06:06] LABS: FERRITIN 15 ng/mL (15-150)
[2021-12-03 06:13] VITALS: BP_SYST 121
[2021-12-03] MEDS: NACL 0.9% 1,000 ML IV SCH (06:29)
[2021-12-03 06:51] LABS: BASOPHILS % (AUTO) 0.4 % (0.0-2.0); EOSINOPHILS # (AUTO) 0.2 K/uL (0.0-0.4); EOSINOPHILS % (AUTO) 5.9 % (0.0-4.0); HEMATOCRIT 30.1 % (36-48); HEMOGLOBIN 9.3 g/dL (12.0-16.0); LYMPHOCYTES # (AUTO) 1.5 K/uL (1.0-5.5); LYMPHOCYTES % (AUTO) 42.7 % (20.5-51.5); MEAN CORPUSCULAR HEMOGLOBIN 21 pg (27-31); MEAN CORPUSCULAR HGB CONC 31 % (32-36); MEAN CORPUSCULAR VOLUME 68 fL (79.0-98.0); MONOCYTES # (AUTO) 0.4 K/uL (0.0-1.0); MONOCYTES % (AUTO) 12.2 % (1.7-9.3); NEUTROPHILS # (AUTO) 1.4 K/uL (1.8-7.7); NEUTROPHILS % (AUTO) 38.8 % (40.0-70.0); RED BLOOD CELL COUNT(AUTO) 4.46 MIL/uL (4.2-6.2); RED CELL DISTRIBUTION WIDTH 19.6 % (9.0-15.0); RETICULOCYTE COUNT 2.2 % (0.5-1.5); WHITE BLOOD COUNT (AUTO) 3.6 K/uL (4.8-10.8)
--- NOTE | 2021-12-03 07:30 | NUR ---
PT ALL SMILES THIS A.M STATED RESTED WELL THRU OUT NIGHT. HIGHLY APPRECIATIVE OF CARE. ENDORSED TO A.M NURSE IRON IVPB NOT AVAILABLE LAST NIGHT. CHECKED WITH PHARMACY AND THEY STATED IT MUST BE COMPOUNDED. RELINQUISHED CARE OF PT .
[2021-12-03 08:05] LABS: CALCIUM 8.2 mg/dL (8.4-11.0); CREATININE 0.61 mg/dL (0.55-1.30); POTASSIUM 3.6 mmol/L (3.5-5.1)
[2021-12-03] MEDS ORDERED: ONDANSETRON HCL 4 MG/2 ML VIAL IVP PRN (08:15)
--- NOTE | 2021-12-03 08:45 | NUR ---
INITIAL ROUNDS Received pt AAOx4, no s/s resp distress, c/o headache-will check on Tylenol, cool wash cloth and ice pack offered-pt declined. IVF infusing well to LAC at ordered rate with no s/s infiltration to site. Noted swelling and redness to RLE. Plan of care for the day reviewed with pt-pt verbalized her understanding. Pain management, disease process, skin and safety discussed-teach back done. Call light within reach.
[2021-12-03 09:09] VITALS: BP_SYST 122
[2021-12-03] MEDS: FERROUS SULFATE 325 MG TABLET.DR PO SCH ×3 (09:25→21:00)
[2021-12-03] MEDS: FOLIC ACID 1 MG TABLET PO SCH (09:25)
[2021-12-03] MEDS: METOPROLOL TARTRATE 25 MG TABLET PO SCH (09:26)
[2021-12-03] MEDS: THIAMINE HCL 100 MG TABLET PO SCH (09:27)
[2021-12-03] MEDS: DOCUSATE SODIUM 100 MG CAPSULE PO PRN (09:27)
[2021-12-03 10:06] LABS: FOLATE (FOLIC ACID) 13.9 ng/mL (>3.0)
[2021-12-03 12:40] LABS: PLATELET COUNT (AUTO) 38 K/uL (130-430)
[2021-12-03] MEDS: SOD FERRIC GLUC COMPLEX/SUC 125 MG in NS 100 ML IV SCH (13:30)
[2021-12-03] MEDS: CEFEPIME 2 GM in D5W 100 ML IV SCH ×2 (13:32→23:58)
[2021-12-03] MEDS: VANCOMYCIN HCL 500 MG in NS 100 ML IV SCH ×2 (13:33→23:59)
--- NOTE | 2021-12-03 13:41 | NUR ---
IV PLACEMENT: # 22 gauge angiocath placed to RFA. Use of asceptic technique. Opsite placed over site. Blood return noted. Flushed with 10 cc of normal saline. No evidence of infiltration noted. Patient tolerated well. IVPB now infusing well to site at ordered rate.
[2021-12-03 15:57] VITALS: BP_SYST 114
--- NOTE | 2021-12-03 18:56 | NUR ---
CLOSING NOTE Pt resting quietly in bed with no s/s resp distress, no c/o pain or discomfort. IVF infusing well at ordered rate with no s/s infiltration to site. Skin and safety precautions remain in place. Call light within reach.
--- NOTE | 2021-12-03 19:30 | NUR ---
PM OPENING NOTES HAND-OFF REPORT RECEIVED FROM MICAH CHAVEZ. REPORTED NO HEADACHE, PHYSICAL THERAPY ORDERED AND IRON IVPB RECEIVED FROM COMPOUNDING AND BEGAN. PT AWAKE AND STATED "FELT MUCH BETTER WITH NO HEADACHE. ALSO FOOT AND LEG NOT HURTING BECAUSE OF THE TYLENOL THE NURSE GAVE ME.". ENC. PT TO KEEP LEG ELEVATED ON PILLOW MUCH POSSIBLE NOTED PT SPENDS MUCH TIME PUTTERING AROUND ROOM AND BATHROOM WITH LEG IN DOWNWARD POSITION. PT STATED UNDERSTOOD AND WOULD BE MORE MINDFUL OF THIS. (CMS) CIRCULATION, MOVEMENT AND SENSATION REMAINS INTACT IN LLE. NOTED LESS SWELLING AND GEN COLOR IN FOOT TODAY. CONT. TO MONITOR AND ASSIST.
[2021-12-03 20:00] VITALS: BP_SYST 136
[2021-12-04] VITALS: BP_SYST 142
[2021-12-04] MEDS: NACL 0.9% 1,000 ML IV SCH ×2 (02:55→04:43)
--- NOTE | 2021-12-04 07:30 | NUR ---
PM CLOSING NOTED HAND-OFF REPORT TO RETURNING NURSE UPDATE. AFEBRILE, MEDICATED X1 WITH TYLENOL 325 MG FOR 2/10 RLE DISCOMFORT. MEDS GIVEN SCHEDULED. GAMES MANAGER REPORTED OVERHEAD LIGHT MAL FUNCTION TO MAINTENANCE. CMS INTACT TO RLE. RELINQUISHED CARE OF PT AT THIS TIME.
[2021-12-04 08:10] LABS: BASOPHILS % (AUTO) 0.9 % (0.0-2.0); EOSINOPHILS # (AUTO) 0.2 K/uL (0.0-0.4); EOSINOPHILS % (AUTO) 7.1 % (0.0-4.0); HEMATOCRIT 28.8 % (36-48); LYMPHOCYTES # (AUTO) 1.1 K/uL (1.0-5.5); LYMPHOCYTES % (AUTO) 37.8 % (20.5-51.5); MEAN CORPUSCULAR HEMOGLOBIN 21 pg (27-31); MEAN CORPUSCULAR HGB CONC 31 % (32-36); MEAN CORPUSCULAR VOLUME 68 fL (79.0-98.0); MONOCYTES # (AUTO) 0.3 K/uL (0.0-1.0); MONOCYTES % (AUTO) 11.4 % (1.7-9.3); NEUTROPHILS # (AUTO) 1.3 K/uL (1.8-7.7); NEUTROPHILS % (AUTO) 42.8 % (40.0-70.0); RED BLOOD CELL COUNT(AUTO) 4.25 MIL/uL (4.2-6.2); RED CELL DISTRIBUTION WIDTH 19.4 % (9.0-15.0)
[2021-12-04 08:38] VITALS: BP_SYST 138
--- NOTE | 2021-12-04 08:38 | NUR ---
INITIAL ROUNDS Received pt AAOx4, no s/s resp distress, no c/o pain or discomfort. IVF infusing well to RFA at ordered rate with no s/s infiltration to site. Noted swelling and redness to right foot. Plan of care for the day reviewed with pt-pt verbalized her understanding. Pain management, disease process, skin and safety discussed-teach back done. Call light within reach.
[2021-12-04] MEDS ORDERED: DOXY100C5 PO (08:43)
[2021-12-04 09:26] LABS: CALCIUM 7.2 mg/dL (8.4-11.0); CREATININE 0.68 mg/dL (0.55-1.30); POTASSIUM 3.7 mmol/L (3.5-5.1)
[2021-12-04] MEDS: FERROUS SULFATE 325 MG TABLET.DR PO SCH ×2 (09:52→22:36)
[2021-12-04] MEDS: METOPROLOL TARTRATE 25 MG TABLET PO SCH (09:52)
[2021-12-04] MEDS: THIAMINE HCL 100 MG TABLET PO SCH (09:52)
[2021-12-04] MEDS: FOLIC ACID 1 MG TABLET PO SCH (09:52)
[2021-12-04] MEDS: SOD FERRIC GLUC COMPLEX/SUC 125 MG in NS 100 ML IV SCH (09:53)
--- NOTE | 2021-12-04 11:08 | NUR ---
PATIENT WAS SEEN FOR PHYSICAL THERAPY EVALUATION. SHE IS SAFE TO AMBULATE WITH NURSING SUPERVISION. AND SHOULD USE THE FWW. PATIENT DOES NOT NEED FURTHER PHYSICAL THERAPY AT THIS TIME.
[2021-12-04] MEDS: CEFEPIME 2 GM in D5W 100 ML IV SCH (11:44)
[2021-12-04] MEDS ORDERED: VANCOMYCIN HCL 750 MG in NS 250 ML IV SCH (12:30)
[2021-12-04 13:17] LABS: PLATELET COUNT (AUTO) 41 K/uL (130-430)
[2021-12-04] MEDS: DOCUSATE SODIUM 100 MG CAPSULE PO PRN (13:44)
[2021-12-04] MEDS: MORPHINE 2 MG/ML INJ. SYRINGE IVP PRN (13:45)
[2021-12-04 17:15] VITALS: BP_SYST 129
[2021-12-04 19:15] VITALS: BP_SYST 129
--- NOTE | 2021-12-04 19:30 | NUR ---
PM OPENING NOTES HAND-OFF REPORT RECEIVED FROM BRYAN CHAVEZ. REPORTS: TO BE DISCHARGED HOME THIS EVENING EARLIER. PT STATED NAUSEA. LYING IN BED MOANING. DENIES PAIN. STATED FEELS NAUSEATED. NO EMESIS. RIGHT LEG APPEAR MINIMAL EDEMA AND MOVES TOES WELL, PEDAL PULSES AND PUSHES INTACT. OFFERED HYDRATION. ALSO REQUESTED JELLO. GIVEN. WILL CALL TO MAKE MD AWARE.
--- NOTE | 2021-12-04 19:31 | NUR ---
CLOSING NOTE Pt resting quietly in bed with no s/s resp distress, no c/o pain, c/o feeling nausea and clammy-endorsed to adoption agent nurse and night charge nurse-may need to hold discharge. Call light within reach
[2021-12-04 20:00] VITALS: BP_SYST 133
--- NOTE | 2021-12-04 21:00 | NUR ---
MD CLARKE PHONED. MADE AWARE PT NAUSEA, AND STATES SHE FEELS HOT ALTHOUGH VS 98.6-63-20-133/72-100% O2 SATS. MD RESPONDED ALL CULTURES CAME BACK NEGATIVE AND TO DISCHARGE HOME TONIGHT HE THOUGHT SHE WAS ALREADY DISCHARGED THIS MORNING. EXPLAINED TO MD PT HAD DIFFICULTY WITH TRANSPORT THIS MORNING. STATED PT TO BE DISCHARGED TONIGHT ORDERED AND STRESSED TO TAKE HER MEDS AT HOME.
[2021-12-04 21:18] VITALS: BP_SYST 133
--- NOTE | 2021-12-04 21:26 | NUR ---
Sara daughter called and left message to call back , to notify the dc order .
--- NOTE | 2021-12-04 21:54 | NUR ---
Daughter Sara called again , this time i was able to talk to her ,as per daughter pts brother kendra will come and peanut picker the pt, primary RN made aware .
--- NOTE | 2021-12-04 22:00 | NUR ---
IV AND NAME TAG REMOVED. PERSONAL BELONGINGS GATHERED.
--- NOTE | 2021-12-04 22:15 | NUR ---
TRANSPORTATION ARRIVED. DAUGHTER ARRANGED TRANSPORT VIA PRIVATE CAR. DISCHARGED AT THIS TIME. SMILING AND STATED "THANK YOU FOR YOUR COMPASSION..." SHE WAS WHEELED AWAY.
== END 2021-12-04 23:09 | disposition home or self-care (01) | DRG 720 ==
LOC: SED 18:18 → SMU 12-02 02:44
PROVIDERS: ADMIT General Practice; ATTEND General Practice
DX: A41.9 Sepsis, unspecified organism (principal); D61.818 Other pancytopenia; E43 Unspecified severe protein-calorie malnutrition; D63.8 Anemia in other chronic diseases classified elsewhere; K92.2 Gastrointestinal hemorrhage, unspecified; L03.115 Cellulitis of right lower limb; K70.9 Alcoholic liver disease, unspecified; N39.0 Urinary tract infection, site not specified; I10 Essential (primary) hypertension; F10.20 Alcohol dependence, uncomplicated; B19.20 Unspecified viral hepatitis C without hepatic coma; Z20.822 Contact with and (suspected) exposure to COVID-19; K21.9 Gastro-esophageal reflux disease without esophagitis
CPT/HCPCS: 36415; 71045; 73590-TC; 80048; 80053; 80202; 81000; 82607; 82728; 82746; 82962; 83036; 83540; 83550; 83605; 83735; 84484; 85025; 85044; 85651-TC; 86140; 87040; 87086; 93005; 93971; 96365; 96375; 99285; J0692; J2270; J2405; J2543; J2916; J3370; J7050; J7060

== ENCOUNTER 2022-10-31 03:16 | Emergency (ER) | payer MEDICAID ==
[~2022-10-31] VITALS: Ht 160 cm; Wt 61.2 kg
[~2022-10-31 03:16] MED LIST changes: +DOXY100C5 PO; -NITR-85 PO
[2022-10-31 03:40] VITALS: BP_SYST 139
--- NOTE | 2022-10-31 03:40 | NUR ---
Patient to ER bed 1 for evaluation. Side rails up.
[2022-10-31] MEDS ORDERED: KETOROLAC TROMETHAMINE 30 MG VIAL IVP ONE (03:45)
[2022-10-31] MEDS ORDERED: NACL 0.9% 1,000 ML IV ONE (03:45)
[2022-10-31 03:58] LABS: EOSINOPHILS # (AUTO) 0.1 K/uL (0.0-0.4); HEMOGLOBIN 8.6 g/dL (12.0-16.0); LYMPHOCYTES # (AUTO) 0.7 K/uL (1.0-5.5); MONOCYTES # (AUTO) 0.2 K/uL (0.0-1.0)
[2022-10-31 04:17] LABS: ANION GAP 6 (5-15); CHLORIDE 106 mmol/L (98-107); CREATININE 0.72 mg/dL (0.55-1.30); GFR AFRICAN AMERICAN 106 mL/min (>90); GLUCOSE 106 mg/dL (70-99); UREA NITROGEN, BLOOD 17 mg/dL (8-21)
[2022-10-31 04:18] LABS: BASOPHILS % (AUTO) 0.9 % (0.0-2.0); EOSINOPHILS % (AUTO) 3.3 % (0.0-4.0); HEMATOCRIT 27.7 % (36-48); MEAN CORPUSCULAR HEMOGLOBIN 21 pg (27-31); MEAN CORPUSCULAR HGB CONC 31 % (32-36); MEAN CORPUSCULAR VOLUME 69 fL (79.0-98.0); MONOCYTES % (AUTO) 11.9 % (1.7-9.3); NEUTROPHILS % (AUTO) 44.9 % (40.0-70.0); RED BLOOD CELL COUNT(AUTO) 4.01 MIL/uL (4.2-6.2); RED CELL DISTRIBUTION WIDTH 18.9 % (9.0-15.0)
[2022-10-31 04:21] LABS: ALANINE AMINOTRANSFERASE 54 U/L (12-78); ALBUMIN 2.8 g/dL (3.4-4.8); ASPARTATE AMINOTRANSFERASE 81 U/L (10-37); LIPASE 182 U/L (73-393); NEUTROPHILS # (AUTO) 0.8 K/uL (1.8-7.7); PHOSPHORUS 3.8 mg/dL (2.7-4.5); TOTAL BILIRUBIN 0.7 mg/dL (0.0-1.0)
[2022-10-31 04:22] LABS: INR 1.4 (0.8-1.2); PLATELET COUNT (AUTO) 33 K/uL (130-430); PROTHROMBIN TIME 14.2 SECS (9.5-12.5); WHITE BLOOD COUNT (AUTO) 1.9 K/uL (4.8-10.8)
[2022-10-31 04:25] LABS: ALCOHOL, BLOOD < 3 mg/dL (<10)
--- NOTE | 2022-10-31 04:29 | NUR ---
Dr. JACQUES at bedside examining the patient.
[2022-10-31] MEDS ORDERED: ONDANSETRON HCL 4 MG/2 ML VIAL IVP ONE (04:45)
[2022-10-31] MEDS ORDERED: LACTULOSE 20 GM/30 ML UDC PO ONE (04:45)
[2022-10-31] MEDS ORDERED: cefTRIAXone 1 GM in D5W 50 ML IV ONE (05:00)
--- NOTE | 2022-10-31 05:30 | NUR ---
MD AT BEDSIDE TO DISCUSS PLAN OF CARE.
--- NOTE | 2022-10-31 06:30 | NUR ---
ULTRASOUND AT BEDSIDE
[2022-10-31] MEDS ORDERED: cefTRIAXone 1 GM VIAL ONE (07:07)
--- NOTE | 2022-10-31 07:15 | NUR ---
[place] of care received, pt A&Ox4, VSS, respirations even and unlabored, no N/V noted, respirations even and unlabored, will cont to monitor.
[2022-10-31] MEDS ORDERED: ONDANSETRON HCL 4 MG/2 ML VIAL ONE (07:20)
[2022-10-31] MEDS ORDERED: LACTULOSE 20 GM/30 ML UDC ONE (07:20)
[2022-10-31] MEDS ORDERED: TRAM50TA2 PO (07:23)
--- NOTE | 2022-10-31 07:30 | NUR ---
Called Chiqui [phone] to notify patient needs a ride home,no answer..
[2022-10-31] MEDS ORDERED: BACTROBAN TP (08:35)
[2022-10-31] MEDS ORDERED: ONDA-8 TL (08:51)
[2022-10-31 08:54] VITALS: BP_SYST 139
--- NOTE | 2022-10-31 08:56 | NUR ---
Patient given written and verbal discharge instructions and verbalizes understanding. ER MD discussed with patient the results and treatment provided. Patient in stable condition. ID arm band removed. IV catheter removed intact and dressing applied, no active bleeding. Rx of Tramadol, Bactrobam and Zofran given. Patient educated on pain management and to follow up with PMD. Pain Scale 0/10. Opportunity for questions provided and answered. Medication side effect fact sheet provided.
== END 2022-10-31 08:56 | disposition home or self-care (01) ==
LOC: SED 03:16
DX: K74.60 Unspecified cirrhosis of liver (principal); R14.0 Abdominal distension (gaseous); R25.2 Cramp and spasm; R60.9 Edema, unspecified; E72.20 Disorder of urea cycle metabolism, unspecified; I10 Essential (primary) hypertension; F10.21 Alcohol dependence, in remission; F15.10 Other stimulant abuse, uncomplicated; F14.90 Cocaine use, unspecified, uncomplicated; Z88.5 Allergy status to narcotic agent; Z79.899 Other long term (current) drug therapy; Y90.6 Blood alcohol level of 120-199 mg/100 ml
CPT/HCPCS: 99285; 74176; 93970; 96365; 96375; 96361; 80053; 82140; 83690; 83735; 84100; 85025; 85610; 85730; 86886; 86900; 86901; 87040; 36415; 76376; 83605; G0482; J0696; J1885; J2405; Q9967; J7030

== ENCOUNTER 2023-07-31 02:58 | Emergency (ER) | payer MEDICAID ==
[~2023-07-31] VITALS: Ht 160 cm; Wt 54.4 kg
[~2023-07-31 02:58] MED LIST changes: +BACTROBAN TP; +ONDA-8 TL; +TRAM50TA2 PO
[2023-07-31 03:09] VITALS: BP_SYST 148; PULSE 75; RESP 20; TEMP 98.4; O2SAT 100
[2023-07-31] MEDS: KETOROLAC TROMETHAMINE 30 MG VIAL IVP ONE (03:53)
[2023-07-31 04:12] LABS: EOSINOPHILS # (AUTO) 0.1 K/uL (0.0-0.4); HEMATOCRIT 28.6 % (36-48); HEMOGLOBIN 9.1 g/dL (12.0-16.0); LYMPHOCYTES # (AUTO) 0.7 K/uL (1.0-5.5); MEAN CORPUSCULAR HGB CONC 32 % (32-36); MONOCYTES # (AUTO) 0.3 K/uL (0.0-1.0); WHITE BLOOD COUNT (AUTO) 2.5 K/uL (4.8-10.8)
[2023-07-31 04:14] LABS: BILIRUBIN,URINE NEGATIVE (NEGATIVE); COLOR,URINE YELLOW (YELLOW); GLUCOSE,URINE NEGATIVE (NEGATIVE); KETONES,URINE NEGATIVE (NEGATIVE); NITRITE, URINE NEGATIVE (NEGATIVE); PROTEIN URINE NEGATIVE (NEGATIVE); UROBILINOGEN,URINE 0.2 (0.2-1.0)
[2023-07-31 04:17] LABS: BASOPHILS % (AUTO) 0.6 % (0.0-2.0); EOSINOPHILS % (AUTO) 4.4 % (0.0-4.0); LYMPHOCYTES % (AUTO) 28.7 % (20.5-51.5); MEAN CORPUSCULAR HEMOGLOBIN 23 pg (27-31); MEAN CORPUSCULAR VOLUME 72 fL (79.0-98.0); MONOCYTES % (AUTO) 12.3 % (1.7-9.3); NEUTROPHILS # (AUTO) 1.4 K/uL (1.8-7.7); RED BLOOD CELL COUNT(AUTO) 3.98 MIL/uL (4.2-6.2); RED CELL DISTRIBUTION WIDTH 20.7 % (9.0-15.0)
[2023-07-31 04:20] LABS: CREATININE 0.6 mg/dL (0.55-1.30); POTASSIUM 3.4 mmol/L (3.5-5.1)
[2023-07-31] MEDS: NACL 0.9% 1,000 ML IV ONE (04:21)
[2023-07-31 04:24] LABS: PLATELET COUNT (AUTO) 47 K/uL (130-430)
[2023-07-31 04:27] LABS: ALBUMIN 2.7 g/dL (3.4-4.8); BILIRUBIN,DIRECT 0.3 mg/dL (0.0-0.3); TOTAL BILIRUBIN 0.7 mg/dL (0.0-1.0); TOTAL PROTEIN, SERUM 6.6 g/dL (6.4-8.3)
[2023-07-31 04:29] LABS: BLOOD, URINE TRACE (NEGATIVE); CLARITY/URINE SLIGHTLY CLOUDY (CLEAR); LEUKOCYTE ESTERASE ,URINE 1+ (NEGATIVE)
[2023-07-31 04:31] LABS: BACTERIA,URINE FEW /HPF (None Seen)
[2023-07-31 05:12] LABS: METHAMPHETAMINES SCREEN,URINE POSITIVE (NEG <=500); URINE AMPHETAMINE POSITIVE (NEG <=500)
[2023-07-31 05:13] LABS: BARBITURATE, URINE NEGATIVE (NEG <=200); BENZODIAZEPINE, URINE NEGATIVE (NEG <=150); CANNABINOID, URINE NEGATIVE (NEG <=50); COCAINE, URINE NEGATIVE (NEG <=150); OPIATE, URINE NEGATIVE (NEG <=100); PHENCYCLIDINE SCREEN,URINE NEGATIVE (NEG <=25); UR TRICYCLIC ANTIDEPRESSANTS NEGATIVE (NEG <=300); URINE METHADONE NEGATIVE (NEG <=200); URINE OXYCODONE SCREEN NEGATIVE (NEG <=100)
[2023-07-31] MEDS: cefTRIAXone 1 GM IVPB PREMIX 50 ML IV ONE (05:17)
[2023-07-31] MEDS ORDERED: cefTRIAXone 1 GM IVPB PREMIX 50 ML IV ONE (05:17)
[2023-07-31] MEDS ORDERED: PHEN-726 PO (05:20)
[2023-07-31] MEDS ORDERED: CIPR500T5 PO (05:20)
[2023-07-31 06:00] VITALS: BP_SYST 140; PULSE 73; RESP 15; TEMP 97.6; O2SAT 97
== END 2023-07-31 06:00 | disposition home or self-care (01) ==
LOC: SED 02:58
DX: N39.0 Urinary tract infection, site not specified (principal); F15.129 Other stimulant abuse with intoxication, unspecified; K74.60 Unspecified cirrhosis of liver; I10 Essential (primary) hypertension; Z88.8 Allergy status to other drugs, medicaments and biological substances; Z79.899 Other long term (current) drug therapy
CPT/HCPCS: 99285; 74176; 96365; 96361; 96375; 80307; 80076; 80048; 85025; 87040; 87086; 36415; 81000; 81001; 81015; J0696; J1885; J7030; 87186

== ENCOUNTER 2024-03-14 16:24 | Inpatient (IN) | payer MEDICAID ==
[~2024-03-14] VITALS: Ht 160 cm; Wt 58.1 kg
[~2024-03-14 16:24] MED LIST changes: +CIPR500T5 PO; +PHEN-726 PO
[2024-03-14 16:39] VITALS: BP_SYST 150; PULSE 64; RESP 20; TEMP 98.3; O2SAT 96
[2024-03-14 18:06] LABS: HEMATOCRIT 31.5 % (36-48); HEMOGLOBIN 10.1 g/dL (12.0-16.0); MEAN CORPUSCULAR HEMOGLOBIN 23 pg (27-31); MEAN CORPUSCULAR HGB CONC 32 % (32-36); MEAN CORPUSCULAR VOLUME 72 fL (79.0-98.0); RED CELL DISTRIBUTION WIDTH 25.3 % (9.0-15.0)
[2024-03-14 18:24] LABS: INR 1.3 (0.8-1.2); PROTHROMBIN TIME 13.7 SECS (9.5-12.5)
[2024-03-14 18:35] LABS: BAND % (MANUAL) 3 % (0-6); LYMPHOCYTES % (MANUAL) 28 % (20-46); PLATELET COUNT (AUTO) 41 K/uL (130-430)
[2024-03-14 18:36] LABS: ANISOCYTOSIS 1+; BASOPHILS % (MANUAL) 0 % (0-2); EOSINOPHILS % (MANUAL) 3 % (0-7); MONOCYTES % (MANUAL) 7 % (0-11); OVALOCYTES FEW; PLATELET ESTIMATE DECREASED (ADEQUATE)
[2024-03-14 18:50] LABS: ALBUMIN 2.8 g/dL (3.4-4.8); CREATININE 0.72 mg/dL (0.55-1.30); POTASSIUM 3.8 mmol/L (3.5-5.1); TOTAL BILIRUBIN 0.5 mg/dL (0.0-1.0); TOTAL PROTEIN, SERUM 6.8 g/dL (6.4-8.3)
[2024-03-14 19:12] LABS: BILIRUBIN,DIRECT 0.3 mg/dL (0.0-0.3)
[2024-03-14] MEDS ORDERED: ACETAMINOPHEN 325 MG TABLET PO PRN (19:30)
[2024-03-14] MEDS: PIPERACILLIN/TAZO 3.375 GM in NS 50 ML IV ONE (19:54)
[2024-03-14] MEDS ORDERED: PIPERACILLIN/TAZOBACTAM 3.375 GM/VIAL (ZOSYN) IV ONE (19:56)
[2024-03-14] MEDS: NACL 0.9% 1,000 ML IV SCH (20:15)
[2024-03-14 21:13] LABS: BILIRUBIN,URINE NEGATIVE (NEGATIVE); BLOOD, URINE NEGATIVE (NEGATIVE); CLARITY/URINE CLEAR (CLEAR); COLOR,URINE YELLOW (YELLOW); GLUCOSE,URINE NEGATIVE (NEGATIVE); KETONES,URINE NEGATIVE (NEGATIVE); LEUKOCYTE ESTERASE ,URINE NEGATIVE (NEGATIVE); NITRITE, URINE NEGATIVE (NEGATIVE); PH,URINE 5.5 (5.0-8.0); PROTEIN URINE NEGATIVE (NEGATIVE); UROBILINOGEN,URINE 0.2 (0.2-1.0)
[2024-03-15 00:05] VITALS: BP_SYST 119; PULSE 61; RESP 16; TEMP 97.7
[2024-03-15] MEDS: MORPHINE 2 MG/ML INJ. SYRINGE IVP PRN (01:15)
[2024-03-15 07:12] LABS: BASOPHILS % (AUTO) 0.5 % (0.0-2.0); EOSINOPHILS # (AUTO) 0.1 K/uL (0.0-0.4); EOSINOPHILS % (AUTO) 3.4 % (0.0-4.0); HEMATOCRIT 31.6 % (36-48); HEMOGLOBIN 9.8 g/dL (12.0-16.0); LYMPHOCYTES # (AUTO) 0.7 K/uL (1.0-5.5); LYMPHOCYTES % (AUTO) 27.2 % (20.5-51.5); MEAN CORPUSCULAR HEMOGLOBIN 22 pg (27-31); MEAN CORPUSCULAR HGB CONC 31 % (32-36); MEAN CORPUSCULAR VOLUME 71 fL (79.0-98.0); MONOCYTES # (AUTO) 0.3 K/uL (0.0-1.0); MONOCYTES % (AUTO) 10.8 % (1.7-9.3); NEUTROPHILS # (AUTO) 1.5 K/uL (1.8-7.7); NEUTROPHILS % (AUTO) 58.1 % (40.0-70.0); RED BLOOD CELL COUNT(AUTO) 4.43 MIL/uL (4.2-6.2); RED CELL DISTRIBUTION WIDTH 24.4 % (9.0-15.0); WHITE BLOOD COUNT (AUTO) 2.6 K/uL (4.8-10.8)
[2024-03-15 07:37] LABS: ALBUMIN 2.8 g/dL (3.4-4.8); CALCIUM 8.1 mg/dL (8.4-11.0); CREATININE 0.66 mg/dL (0.55-1.30); POTASSIUM 4.2 mmol/L (3.5-5.1); TOTAL BILIRUBIN 0.6 mg/dL (0.0-1.0); TOTAL PROTEIN, SERUM 6.6 g/dL (6.4-8.3)
[2024-03-15 07:58] LABS: PLATELET COUNT (AUTO) 37 K/uL (130-430)
[2024-03-15 08:00] VITALS: BP_SYST 128; PULSE 56; RESP 15; TEMP 97.6; O2SAT 96
[2024-03-15 08:45] VITALS: O2SAT 96
[2024-03-15 12:37] VITALS: BP_SYST 121; PULSE 60; RESP 16; TEMP 97.5; O2SAT 97
[2024-03-15] MEDS: HYDROcodone/ACETAMIN 5-325 MG TAB (NORCO/ VICODIN) PO PRN (13:15)
[2024-03-15 16:08] VITALS: BP_SYST 125; PULSE 58; RESP 15; TEMP 97.7; O2SAT 96
[2024-03-15 20:00] VITALS: BP_SYST 112; PULSE 65; RESP 18; TEMP 98.5; O2SAT 97
[2024-03-15 23:02] LABS: BARBITURATE, URINE NEGATIVE (NEG <=200); BENZODIAZEPINE, URINE NEGATIVE (NEG <=150); CANNABINOID, URINE NEGATIVE (NEG <=50); COCAINE, URINE NEGATIVE (NEG <=150); PHENCYCLIDINE SCREEN,URINE NEGATIVE (NEG <=25); UR TRICYCLIC ANTIDEPRESSANTS NEGATIVE (NEG <=300); URINE AMPHETAMINE NEGATIVE (NEG <=500); URINE METHADONE NEGATIVE (NEG <=200); URINE OXYCODONE SCREEN NEGATIVE (NEG <=100)
[2024-03-15 23:03] LABS: METHAMPHETAMINES SCREEN,URINE POSITIVE (NEG <=500); OPIATE, URINE POSITIVE (NEG <=100)
[2024-03-16] VITALS: BP_SYST 132; PULSE 67; RESP 18; TEMP 98.1; O2SAT 99
[2024-03-16 07:57] LABS: ALBUMIN 2.9 g/dL (3.4-4.8); CALCIUM 8.2 mg/dL (8.4-11.0); CREATININE 0.61 mg/dL (0.55-1.30); PHOSPHORUS 3.3 mg/dL (2.7-4.5); POTASSIUM 4.1 mmol/L (3.5-5.1); TOTAL BILIRUBIN 0.6 mg/dL (0.0-1.0); TOTAL PROTEIN, SERUM 6.9 g/dL (6.4-8.3)
[2024-03-16 08:01] VITALS: BP_SYST 134; PULSE 67; RESP 17; TEMP 98.2; O2SAT 99
[2024-03-16 08:09] LABS: BASOPHILS % (AUTO) 0.5 % (0.0-2.0); EOSINOPHILS # (AUTO) 0.1 K/uL (0.0-0.4); EOSINOPHILS % (AUTO) 2.7 % (0.0-4.0); HEMATOCRIT 32.6 % (36-48); HEMOGLOBIN 10.2 g/dL (12.0-16.0); LYMPHOCYTES # (AUTO) 0.7 K/uL (1.0-5.5); LYMPHOCYTES % (AUTO) 29.8 % (20.5-51.5); MEAN CORPUSCULAR HEMOGLOBIN 22 pg (27-31); MEAN CORPUSCULAR HGB CONC 31 % (32-36); MEAN CORPUSCULAR VOLUME 71 fL (79.0-98.0); MONOCYTES # (AUTO) 0.3 K/uL (0.0-1.0); NEUTROPHILS # (AUTO) 1.3 K/uL (1.8-7.7); RED BLOOD CELL COUNT(AUTO) 4.57 MIL/uL (4.2-6.2); RED CELL DISTRIBUTION WIDTH 24.5 % (9.0-15.0); WHITE BLOOD COUNT (AUTO) 2.4 K/uL (4.8-10.8)
[2024-03-16 08:36] LABS: PLATELET COUNT (AUTO) 40 K/uL (130-430)
[2024-03-16 08:45] VITALS: O2SAT 99
[2024-03-16 11:19] LABS: INR 1.3 (0.8-1.2); PROTHROMBIN TIME 13.5 SECS (9.5-12.5)
[2024-03-16 12:46] VITALS: BP_SYST 133; PULSE 66; RESP 18; TEMP 98; O2SAT 98
[2024-03-16 14:39] VITALS: BP_SYST 133; PULSE 66; RESP 16; TEMP 98; O2SAT 98
[2024-03-16 16:58] VITALS: BP_SYST 135; PULSE 64; RESP 17; TEMP 98.1; O2SAT 99
[2024-03-18 07:07] LABS: HEPATITIS A AB, IgM Negative (Negative); HEPATITIS B CORE AB, IgM Negative (Negative); HEPATITIS B SURFACE AG Negative (Negative)
[2024-03-21 10:07] LABS: HEPATITIS C VIRUS AB Reactive (Non Reactive)
== END 2024-03-16 16:20 | disposition home or self-care (01) | DRG 251 ==
LOC: SED 16:24 → SMU 19:25
PROVIDERS: ADMIT Student in an Organized Health Care Education/Training Program; ATTEND Student in an Organized Health Care Education/Training Program
DX: R10.11 Right upper quadrant pain (principal); D61.818 Other pancytopenia; D68.9 Coagulation defect, unspecified; C22.0 Liver cell carcinoma; E44.0 Moderate protein-calorie malnutrition; K76.6 Portal hypertension; E83.51 Hypocalcemia; K74.60 Unspecified cirrhosis of liver; I70.0 Atherosclerosis of aorta; I10 Essential (primary) hypertension; K42.9 Umbilical hernia without obstruction or gangrene; K57.30 Diverticulosis of large intestine without perforation or abscess without bleeding; D25.9 Leiomyoma of uterus, unspecified; R16.1 Splenomegaly, not elsewhere classified; Z85.05 Personal history of malignant neoplasm of liver; Z68.22 Body mass index [BMI] 22.0-22.9, adult; Z56.0 Unemployment, unspecified; Z88.8 Allergy status to other drugs, medicaments and biological substances
CPT/HCPCS: 36415; 80048; 80053; 80074; 80076; 80307; 81001; 81003; 82150; 83605; 83690; 83735; 84100; 85007; 85025; 85027; 85610; 85730; 87040; 99285; J2270; J2543; J7030; Q9967